=== PATIENT | female | born 1965 | race Caucasian/White ===

== ENCOUNTER 2021-08-26 12:10 | Observation (INO) | payer OTHER ==
--- OUTSIDE RECORDS SUMMARY | 2021-08-26 12:15 | XMS REPORT | Continuity of Care Document ---
:1965 Author Organization [facility] t Address [address] [place] [address] Care Team Providers Name Role Phone Jluis Sanchez Attending Clinician Unavailable Matt Attending Clinician Unavailable Sue Camara Attending Clinician Unavailable Negrita Orozco Attending Clinician Unavailable SHEKHAR Attending Clinician Unavailable Jluis Sanchez Admitting Clinician Unavailable Physician, Primary or Family Admitting Clinician Unavaildickson e Negrita Orozco Admitting Clinician Unavailable ORMARISSA Admitting Clinician Unavailable Payers Payer Name Policy Type Policy Number Effective Date Expiration Date Brian andres FORMERLY [facility] [id number] 2019 STAR PLAN 00:00:00 [place] [id number] 2020 HMO 00:00:00 HUMANA MEDICARE [id number] 2019 ADV 00:00:00 MEDICAID [id number] 2019 [place] 00:00:00 HUMANA MEDICARE NA Amy e ADVANTAGE O [facility] Problems Condition Condition Condition Status Onset Resolution Last Treating Co mments Source Name Details Category Date Date Treatment Clinician Date Asthma Ast[facility] Problem [facility]) Kidney Kidney Problem [facility]) Arthritis Arthritis Problem [facility] (LUF/LI V/SA) Weakness Problem Active [place] [facility] Transient Problem Active [place] ischemic [facility]le attack [facility] Paresthesi Problem Active [place] of left lle upper [facility] extremity l Hospita l Allergies, Adverse Reactions, Alerts Allergy Allergy Status Severity Reaction(s) Onset Inactive Treating Comm ents Source Name Type Date Date Clinician haloperi DA Active SV INCREASED [facility] dol PAIN 4-05 Clear 00:00: Sanchez [facility] mustard DA Active SV TONGUE [facility] SWELLING 3-16 Clear 00:00: Sanchez [facility] gabapent DA Active SV FORGETFULNES HC A in S/SLURRED 3-16 Clear SPEECH 00:00: Sanchez [facility] latex DA Active SV ANAPHYLAXIS [facility] 3-16 Clear 00:00: Sanchez [facility] tomato FA Active SV TONGUE [facility] SWELLING 3-16 Clear 00:00: Sanchez [facility] lavender FA Active SV ANAPHYLAXIS 0 [facility] (Lavandu 3-16 Clear la 00:00: [place] angustif 00 [facility] lakisha) [facility] lemon FA Active SV TONGUE 0 [facility] SWELLING 3-16 Clear 00:00: Sanchez 00 [facility] HAND DA Active SV RASH/WELTS 0 [facility] SANITIZE 3-16 Clear R 00:00: Sanchez 00 [facility] Sulfa DA Active SV DUANE 0 [facility] (Sulfona 3-14 Clear mide 00:00: [place] Antibiot 00 [facility]) [facility] latex DA Active SV DUANE 0 [facility] 3-14 Clear 00:00: Sanchez [facility] HAND DA Active SV DUANE 0 [facility] SANITIZE 3-14 Clear R 00:00: Sanchez [facility] NAPROXEN Allergy Active Low Rash [facility] PENICILL Allergy Active Low Rash [facility] LATEX Allergy Active Low Rash 2020-[address] [facility] [facility] Center SULFA Allergy Active Low Rash 2020-[address] [facility] (SULFONA 6-10 [facility] MIDE 00:00: Medical ANTIBIOT 00 Center ICS) No Known DA Active U 2020-0 [facility] Allergie 06-20 [place] 00:00: Health 00 are [facility] No Known DA Active U 2020-0 [facility] Allergie 06-20 [place] 00:00: [facility] 00 are [facility] [place] Allergy Active [place] Pepper to lle substanc Memoria e l Hospita l Lavender Allergy Active [place] Oil to lle substanc Memoria e [facility]ita [facility] Latex Allergy Active [place] to lle substanc [facility]oria e [facility]ita [facility] Tomato Allergy Active [place] to lle substanc [facility]oria e [facility]ospita [facility] Sulfa Allergy Active [place] Antibiot to lle ics substanc Memoria e l Hospita l Mustard Allergy Active [place] to lle substanc Memoria e l Hospita l Shrimp Allergy Active [place] to lle substanc Memoria e l Hospita l Sulfa(Linda DA Active Unknown Rash ([facility] Allergic [facility]ukes e Rxn) Memoria Antibiot l ics) (LUF/LI V/SA) naproxen DA Active Unknown Itching [facility] (LUF/LI V/SA) MISC-YOAV DA Active Unknown Blister [facility] (LUF/LI V/SA) Betadine DA Active Unknown Rash (Severe [facility] Allergic [facility] Rxn) Memoria l (LUF/LI V/SA) Lavender DA Active Unknown Rash (Severe [facility] Allergic [facility] Rxn) Memoria l (LUF/LI V/SA) Mustard DA Active Unknown Tongue [facility] (Severe Memoria Allergic l Rxn) (LUF/LI V/SA) Tomato DA Active Unknown Tongue [facility] (Severe Memoria Allergic l Rxn) (LUF/LI V/SA) Penicill DA Active Unknown Anaphylaxis [facility] ins (Severe [facility]ukes Allergic Memoria Rxn) l (LUF/LI V/SA) latex DA Active Unknown Rash (Severe [facility] Allergic [facility] Rxn) Memoria l (LUF/LI V/SA) Social History Social Habit Start Date Stop Date Quantity Comments Source Sex Ass[birth year] At [birth year] Female Amy Milian 00:00:00 00:00:00 Hospital Smoking Status Start Date Stop Date Source [facility] (LUF/ANGELO/SA) Medications Ordered Filled Start Stop Current Ordering Indication Dosage Frequency Signature Comments Components Source Medication Medication Date Date Medication? Clinician (SIG) Name Name TRAMADOL TRAMADOL Yes 50 EVERY SIX [place] HCL HCL 3-03 HOURS lle (TRAMADOL (TRAMADOL 15:59: NEEDED as Memoria HCL 50 MG HCL 50 MG 00 needed for l TAB) 50 MG TAB) 50 MG PAIN Hos tino TAB TAB l Cyclobenzap Cyclobenzap Yes 5 TWICE [place] rine HCl rine HCl 3-03 DAILY lle (CYCLOBENZA (CYCLOBENZA 12:07: NEEDED as Memoria REJI 5 MG REJI 5 MG 00 needed for l TAB) 5 MG TAB) 5 MG pain/mescl Hospita TAB TAB e spasm l albuterol albuterol Yes .63mg Q5.00H [facility] 0.21 MG/ML 0.21 MG/ML Jamilah es Inhalation Inhalation Mem oria Solution Solution l (LUF/LI V/SA) albuterol albuterol Yes [address] [facility] every 4 to [facility] 6 hours as Memoria needed. l (LUF/LI V/SA) albuterol albuterol Yes .63mg Q5.00H inhaled [facility] 0.21 MG/ML 0.21 MG/ML every 4 to [facility] Inhalation Inhalation 6 hours as Memoria Solution Solution needed. l (LUF/LI V/SA) ALBUTEROL ALBUTEROL Yes 2 EVERY FOUR [place] SULFATE SULFATE HOURS lle (PROAIR HFA (PROAIR HFA NEEDED as Memoria (ALBUTEROL) (ALBUTEROL) needed l INHALER) 1 INHALER) 1 Hos tino PUFF AER PUFF AER l Acetaminoph Acetaminoph Yes 650 THREE [place] en en TIMES lle (Tylenol) (Tylenol) DAILY M emoria 325 MG TAB 325 MG TAB NEEDED l Hospita l Albuterol Albuterol Yes 1.25 EVERY SIX [place] Sulfate Sulfate HOURS lle (ALBUTEROL (ALBUTEROL NEEDED as Memoria 1.25 MG 1.25 MG needed l NEB) 1.25 NEB) 1.25 Hospi ta MG/3 ML NEB MG/3 ML NEB l albuterol albuterol Yes 2 Q5.00H [facility] Memoria l (LUF/LI V/SA) Vital Signs Vital Name Observation Time Observation Value Comments Source Height 2020-07-14 09:52:00 165.1 CM Weight 2020-07-14 09:52:00 143.33 KG HEIGHT 2020-06-18 18:58:00 165.1 cm WEIGHT 2020-06-18 18:58:00 146.965 kg HEIGHT 2020-05-14 14:27:00 165.1 cm WEIGHT 2020-05-14 14:27:00 144.834 kg HEIGHT 2019-09-25 00:00:00 165.1 cm WEIGHT 2019-09-25 00:00:00 147.464 kg Pulse Rate 2020-07-15 11:16:00 77 /min [facility] (LUF/ANGELO/SA) Respiratory Rate 2020-07-15 11:16:00 16 /min [facility] (F/ANGELO/SA) BP Systolic 2020-07-15 11:16:00 111 mm[Hg] [facility] (F/ANGELO/SA) BP Diastolic 2020-07-15 11:16:00 64 mm[Hg] [facility] (F/ANGELO/SA) O2% BldC Oximetry 2020-07-15 11:14:00 98 % [facility] (F/ANGELO/SA) Body Temperature 2020-07-15 10:23:00 97.8 [degF] [facility] (F/ANGELO/SA) Height 2020-07-14 09:52:00 65 [in_i] [facility] (F/ANGELO/SA) Weight 2020-07-14 09:52:00 316 [lb_av] [facility] (F/ANGELO/SA) BMI (Body Mass 2020-07-14 09:52:00 52.6 kg/m2 [facility] Index) [facility] (LUF/ANGELO/SA) BP Systolic 2019-06-18 15:54:00 140 mm[Hg] [facility] BP Diastolic 2019-06-18 15:54:00 65 mm[Hg] [facility] Body Temperature 2019-06-18 15:54:00 96.5 [degF] [facility] Respiratory rate 2019-06-18 15:54:00 18 /min [facility] Heart Rate 2019-06-18 15:54:00 83 /min [facility] Oxygen saturation by 2019-06-18 15:54:00 96 /min [place] Pulse oximetry [facility] Height 2019-06-17 04:24:00 65 [in_i] [facility] Weight 2019-06-17 04:24:00 146.51 kg [facility] BMI (Body Mass 2019-06-17 04:24:00 53.7 kg/m2 [facility] ille Index) [facility] Procedures Procedure Date / Time Performing Clinician Source Performed DILATION AND CURRETAGE OF 2020-07-15 09:35:[address] [facility] UTERUS [facility] (LUF/ANGELO/SA) [id number] DILATION & CURETTAGE 2020-07-15 00:00:[address] [facility] DX&/THER NONO [facility] (LUF/ANGELO/SA) LIPID PANEL 2019-06-18 00:00:00 [facility] A1C 2019-06-18 00:00:00 [facility] CBCA W/PLT & AUTO 2019-06-17 00:00:00 [facility] COMPREHENSIVE METABOLIC 2019-06-17 00:00:00 [facility] PROTIME 2019-06-17 00:00:00 [facility] PTT 2019-06-17 00:00:00 [facility] CARDIAC MARKERS PANEL (ER) 2019-06-17 00:00:00 [facility] A1C 2019-06-17 00:00:00 [facility] LIPID PANEL 2019-06-17 00:00:00 [facility] THYROID STIMULATING 2019-06-17 00:00:00 [facility] CT BRAIN STROKE 2019-06-17 00:00:00 [facility] CHEST 1 VIEW (AP) 2019-06-17 00:00:00 [facility] ECHO W SPECTRAL & COLOR 2019-06-17 00:00:[address] [facility] [address] ANGIOGRAM HEAD 2019-06-17 00:00:[address] [facility] [address] ANGIOGRAM NECK 2019-06-17 00:00:00 [facility] section Critical access hospital (LUF/ANGELO/SA) Laparoscopic [facility] (LUF/ANGELO/SA) KIDNEY STENTS Critical access hospital (LUF/ANGELO/SA) PARTIAL CERVIX REMOVAL [facility] (LUF/ANGELO/SA) Appendectomy [facility] (LUF/ANGELO/SA) RIGHT ANKLE TENDON REPAIR Critical access hospital (LUF/ANEGLO/SA) Plan of Care Planned Activity Planned Date Details Comments Source Instructions Smoking Cessation for [facility] Older Adults: It's Not Hospi sarah Too Late! Instructions Heart-Healthy Diet [facility] Instructions Weight Loss: What Are [facility] Your Options? Hospital Instructions DI for Transient [facility] Ischemic Attack Hospital Instructions DI for High Blood [facility] Instructions Heart Healthy Physical [facility] Instructions DI for Weight Loss [facility] Encounters Start End Encounter Admission Attending Care Care Encounter Source Date/Time Date/Time Type Type Clinicians Facility Department ID 2021-06-28 Inpatient EL Daniel, HCACL DAYS [id number] [facility] 10:30:00 Denise [id number] [facility] 2021-06-02 Inpatient Daniel, HCACL DAYS [id number] [facility] 12:00:00 Denise [id number] [facility] 2021-05-31 Inpatient EL Daniel, HCACL DAYS [id number] [facility] 10:30:00 Denise [id number] [facility] 2021-05-[address] [facility] [id number] Common 14:10:11 Genetta 1108 [facility] 2021-05-12 Outpatient Matt, STLMLC STLMLC [id number] 1 Common 14:09:17 Genetta 1105 [facility] 2021-05-12 Outpatient Matt, STLMLC STLMLC [id number] 1 Common 13:59:56 Genetta 1013 [facility] 2021-05-12 Outpatient Matt, STLMLC STLMLC [id number] 1 Common 13:59:46 Genetta 1012 [facility] 2021-05-12 Outpatient Matt, STLMLC STLMLC [id number] 1 Common 13:37:07 Genetta 0811 [facility] 2021-05-12 Outpatient Matt, STLMLC STLMLC [id number] 1 Common 13:36:50 Genetta 0810 [facility] 2021-05-12 Outpatient Matt, STLMLC STLMLC [id number] 1 Common 13:01:46 Genetta 0511 [facility] 2021-05-12 Outpatient Matt, STLMLC STLMLC [id number] 1 Common 12:58:31 [place] 0503 [facility] 2021-05-12 Outpatient Matt, STLMLC STLMLC [id number] 1 Common 12:49:57 Genetta 0409 [facility] 2021-05-12 Outpatient Matt, STLMLC STLMLC [id number] 1 Common 12:48:16 [place] 0406 [facility] 2021-05-12 Outpatient Matt, STLMLC STLMLC [id number] 1 Common 12:33:57 Genetta 0226 [facility] 2019-06-21 Inpatient HCANW ABRAM [id number] [facility] 22:09:[address] [place] [address] 2021-07-20 2021-07-21 Emergency EM Hoa, HCACL ABRAM [id number] [facility] 19:39:00 01:34:00 Christracheller [id number] [facility] 2021-07-20 2021-07-21 Emergency EM Hoa, HCACL HCACL [id number] [facility] 19:39:00 01:34:00 Christopher 39 Cl [facility] 2021-06-30 2021-07-01 Inpatient ANGELINA Enriquez MEDI.01 [id number] [facility] 05:38:00 21:33:00 Xiang 13 [facility] 2021-06-30 2021-07-01 Inpatient ANGELINA Enriquez MEDI.01 [id number] [facility] 05:38:00 21:33:00 Xiang [id number] [facility] 2021-02-25 2021-02-25 ambulatory STLMLC STLMLC [id number] Common 00:00:00 00:00:00 [facility] 2021-02-22 2021-02-22 ambulatory STLMLC STLMLC [id number] Common 00:00:00 00:00:00 [facility] 2020-08-26 2020-08-26 Outpatient STLMLC STLMLC [id number] Common 00:00:00 00:00:00 [facility] 2020-08-17 2020-08-17 Outpatient STLMLC STLMLC [id number] Common 00:00:00 00:00:00 [facility] 2020-07-22 2020-07-22 Outpatient STLMLC STLMLC [id number] Common 00:00:00 00:00:00 [facility] 2020-07-15 2020-07-15 Inpatient [facility] [id number] 10:34:00 23:59:00 [facility] [address] (LUF/LI A[address], V/SA) KIM BARRIGA [id number] 2020-07-15 2020-07-15 POSTMENOPA O ORAEE, [facility] [id number] 07:22:00 11:21:00 USAL JUAN PRABHAKAR L ukes BLEEDING N, [address] [place], (LUF/[place] [address] 2020-07-15 2020-07-15 Outpatient STLMLC STLMLC [id number] Common 00:00:00 00:00:00 [facility] 2020-07-15 2020-07-15 Inpatient [facility] [id number] [facility] 00:[facility]00 00:00:00 KARELY RAYSTON [id number] [facility], [id number] [id number] l [place], (LUF/[place] [address] 2020-07-15 2020-07-15 Inpatient [facility] [id number] 00:00:00 00:00:00 CHANDLER [id number] Jamilah [facility], [id number] [id number] (LUF/LI AVE, V/SA) [place]IM [place] [id number] 2020-07-15 2020-07-15 Inpatient [facility] [id number] 00:00:00 00:00[facility]00 [facility] RAYPRABHAK[facility] [id number] [facility] N, [id number] [place], (LUF/[place] [address] 2020-07-09 2020-07-09 Outpatient STLMLC STLMLC [id number] Common 00:00:00 00:00:00 [facility] 2020-07-06 2020-07-06 Outpatient STLMLC STLMLC [id number] Common 00:00:00 00:00:00 [facility] 2020-07-03 2020-07-03 Outpatient STLMLC STLMLC [id number] Common 00:00:00 00:00:00 [facility] 2020-07-02 2020-07-02 Outpatient STLMLC STLMLC [id number] Common 00:00:00 00:00:00 [facility] 2020-06-18 2020-06-[address] [facility] Emergency [id number] [facility] 18:44:00 18:44:00 2020-06-12 2020-06-12 Outpatient STLMLC STLMLC [id number] Common 00:00:00 00:00:00 [facility] 2020-05-14 2020-05-[address] [facility] Emergency [id number] [facility] 14:24:00 14:24:00 2019-09-25 2019-09-[address] [facility] Emergency [id number] [facility] 11:44:00 11:44:00 2019-06-29 2019-06-29 Emergency [facility] [id number] [facility] 11:35:00 11:35:00 [id number] 2019-06-17 2019-06-18 Discharged [facility] H000 [id number] [place] 02:02:00 19:00:[address] Results Test Description Test Time Test Comments Results Result Comments Source SED RATE WESTERGREN 2021-07-20 22:59:00 Test Item Value Reference Range Interpretation Comme nts SED RATE [facility] (test code = SEDW) 40 mm/hr 0-20 H C REACTIVE [id number] 22:36:00 Test Item Value Reference Range Interpretation Comments C REACTIVE PROTEIN (test code = 30.0 mg/L <10.0 H CRP) BASIC METABOLIC [id number] 21:40:00 Test Item Value Reference Range Interpretation Comments SODIUM (test code = NA) 139 mEq/L 134-147 N POTASSIUM (test code = 3.9 mEq/L 3.4-5.0 N K) CHLORIDE (test code = 104 mEq/L 100-108 N CL) CARBON DIOXIDE (test 25 mEq/l 21-33 N code = CO2) ANION GAP (test code = 14 0-20 N GAP) GLUCOSE (test code = 105 mg/dL 70-110 N GLU) BLOOD UREA NITROGEN 12 mg/dL 7-18 N (test code = BUN) GLOMERULAR FILTRATION 86.9 90-95 L Units of measure = RATE (test code = GFR) ml/mi n/1.73 m2 CREATININE (test code = 0.7 mg/dL 0.6-1.3 N CREAT) CALCIUM (test code = 9.5 mg/dL 8.0-10.5 N CA) HEPATIC FUNCTION [id number] 21:40:00 Test Item Value Reference Range Interpretation Comments TOTAL PROTEIN (test code = PROT) 7.5 g/dL 6.4-8.2 N ALBUMIN (test code = ALB) 4.40 g/dL 3.4-5.0 N BILIRUBIN TOTAL (test code = 0.80 mg/dL 0.0-1.0 N BILT) BILIRUBIN DIRECT (test code = 0.20 MG/DL 0.0-0.30 N BILD) SGOT/AST (test code = AST) 21 IUnit/L 15-37 N SGPT/ALT (test code = ALT) 11 IUnit/L 30-65 L ALKALINE PHOSPHATASE TOTAL (test 109 IUnit/L 20-125 N code = ALKP) BILIRUBIN INDIRECT (test code = 0.60 MG/DL BILIND) TROP-I HIGH [id number] 21:40:00 Test Item Value Reference Range Interpretation Comments TROP-I HIGH < 3 ng/L 0-34 N CAUTION: Units of the SENSITIVITY (test current te st methodology code = TROPIHS) (ng/L) diffe rfrom the prior test meth odology (ng/mL) by a fa ctor of 1000. 99t h Percentile Uppe r Reference Limit (URL): Fe males: 34 ng/LMales: 54 ng/L In order to distin guish acute elevations of h igh sensitivitytrop onin from other clinical conditions, the FourthUnive rsal Definition of M yocardial Infarction stressesclinica l assessment and the demonstration o f a rise and/orfall in s erial troponin result s above the URL. These resu lts were obtained using Siemens Atellica IM TnI Hreagent. Results from di fferent methodologies s hould not becompared to o ne another as quantitative results and URLs mayvar y by method. LACTIC [id number] 21:39:00 Test Item Value Reference Range Interpretation Comments LACTIC ACID (test code = LACT) 1.2 mmol/L 0.4-1.9 N CBC W/AUTO [id number] 21:24:00 Test Item Value Reference Range Interpretation Comments WHITE BLOOD CELL (test code = 8.3 x10 3/uL 4.5-11.0 N WBC) RED BLOOD CELL (test code = 4.86 x10 6/uL 3.54-5.02 N RBC) HEMOGLOBIN (test code = HGB) 13.8 g/dL 11.0-15.0 N HEMATOCRIT (test code = HCT) 42.5 % 33.0-45.0 N MEAN CELL VOLUME (test code = 87.4 fL 81.0-99.0 N MCV) MEAN CELL HGB (test code = MCH) 28.4 pg 27.0-33.0 N MEAN CELL HGB CONCETRATION 32.5 g/dL 33.0-37.0 L (test code = MCHC) RED CELL DISTRIBUTION WIDTH CV 13.8 % 11.5-14.5 N (test code = RDW) RED CELL DISTRIBUTION WIDTH SD 43.8 fL 37.0-54.0 N (test code = RDW-SD) PLATELET COUNT (test code = 267 x10 3/uL 150-400 N PLT) MEAN PLATELET VOLUME (test code 9.8 fL 7.0-9.0 H = MPV) NEUTROPHIL % (test code = NT%) 67.6 % 56.0-77.0 N IMMATURE GRANULOCYTE % (test 0.6 % 0.0-2.0 N code = IG%) LYMPHOCYTE % (test code = LY%) 20.9 % 14.0-32.0 N MONOCYTE % (test code = MO%) 7.6 % 4.8-9.0 N EOSINOPHIL % (test code = EO%) 2.3 % 0.3-3.7 N BASOPHIL % (test code = BA%) 1.0 % 0.0-2.0 N NUCLEATED RBC % (test code = 0.0 % 0-0 N NRBC%) NEUTROPHIL # (test code = NT#) 5.59 x10 3/uL 2.0-7.6 N IMMATURE GRANULOCYTE # (test 0.05 x10 3/uL 0.00-0.03 H code = IG#) LYMPHOCYTE # (test code = LY#) 1.73 x10 3/uL 1.0-3.8 N MONOCYTE # (test code = MO#) 0.63 x10 3/uL 0.1-0.8 N EOSINOPHIL # (test code = EO#) 0.19 x10 3/uL 0.0-0.2 N BASOPHIL # (test code = BA#) 0.08 x10 3/uL 0.0-0.2 N NUCLEATED RBC # (test code = 0.00 x10 3/uL 0.0-0.1 N NRBC#) MANUAL DIFF REQUIRED (test code NO = MDIFF) UA RFLX MICR CULT IF [id number] 20:56:00 Test Item Value Reference Range Interpretation Comments UA COLOR (test code = COLU) YELLOW YEL/STRAW UA APPEARANCE (test code = CLOUDY CLEAR A APPU) UA GLUCOSE DIPSTICK (test code NEGATIVE NEGATIVE = DGLUU) UA BILIRUBIN DIPSTICK (test NEGATIVE NEGATIVE code = BILU) UA KETONE DIPSTICK (test code = NEGATIVE NEGATIVE KETU) UA SPECIFIC GRAVITY (test code 1.026 1.005-1.030 N = SGU) UA BLOOD DIPSTICK (test code = 1+ NEGATIVE A BALJINDER) UA PH DIPSTICK (test code = 5.0 5.0-7.0 N ESTHER) UA PROTEIN DIPSTICK (test code NEGATIVE NEGATIVE = PROU) UA UROBILINIOGEN DIPSTICK (test 0.2 mg/dL 0.2-1.0 code = URO) UA NITRITE DIPSTICK (test code NEGATIVE NEGATIVE = SULEIMAN) UA LEUKOCYTE ESTERASE DIPSTICK NEGATIVE NEGATIVE (test code = LEUU) UA WBC (test code = WBCU) 0-3 WBC/HPF 0-3 UA RBC (test code = RBCU) 11-20 RBC/HPF 0-3 UA WBC NO REFLEX (test code = 0-3 WBC/HPF 0-3 WBCUCL) UA BACTERIA (test code = BACU) 2+ /HPF NONE SEEN A UA SQUAMOUS CELLS (test code = 11-25 /HPF NONE SEEN A SQU) UA CALCIUM OXALATE CRYSTALS 1+ /HPF NONE SEEN A (test code = CAOXU) UA MUCUS (test code = MUCU) 3+ /LPF NONE SEEN A Indication for culture: RiskForSepsis-no oth srcSpecimen Description: CLEAN CATCH- XR KNEE 1 OR 2 V [id number] 00:00:00 [facility] 1965 Sex: F FAX: Renato Englishvickie MEADE [phone] [place]: St: REG Name: ROSA HOLMSyeda [facility] [place] : 1965 Age/S: 56/F [address] [place] [address] Unit #: [id number] Loc: [place] [address] Phys: Chana English Acct: [id number] Dis Date: S tatus: REG ER PHONE #: [phone] Exam Date: 07/20/20212014 FAX #: [phone] Reason: L KNEE PAIN, SWELLING, REDNESS EXAMS: CPT CODE: [id number] XR KNEE 1 OR 2 T [id number] PROCEDURE INFORMATION: Exam: XR Left Knee Exam date and time: 07/20/2021 8:00 PM Age: 56 years old Clinical indication: Other: L knee pain, swelling, redness TECHNIQUE: Imaging protocol: XR Left knee. Views: 1 or 2 views. COMPARISON: CR XR KNEE 1 OR 2 V LT 06/30/2021 2:14 PM FINDINGS: Bones/joints: There is new irregularity and osseous resorption of the patellar articular margin and superior pole that could be the result of osteomyelitis. There is intact orthopedic total left knee arthroplasty hardware. There is no osseous fracture or dislocation.Soft tissues: There is soft tissue swelling. There is no subcutaneous emphysema or unintentional retained radiodense foreign body in the soft tissues. Other findings: There is a small suprapatellar joint effusion. IMPRESSION: 1. There is new irregularity and osseous resorption of the patellar articular margin and superior pole that could be the result of osteomyelitis. 2. There is a small suprapatellar joint effusion. 3. There is intact orthopedic total left knee arthroplasty hardware. There is no osseous fracture or dislocation. 4. There is soft tissue swelling. There is no subcutaneous emphysemaor unintentional retained radiodense foreign body in the soft tissues. at 2031 Reported and signed by: Car Ramsey D.O. CC: Naomi English Technologist: RT Namrata(Yimi) Trnscrd Date/Time/By: 07/20/2021 (2031) : By: [email or web address] Orig Print D/T: S: 07/20/2021 (2032) PAGE 1 Signed Report- XR CHEST 1 V 2021-07-20 00:00:00 [facility] : 1965 Sex: F FAX: Naomi English [phone] [place]: SAMEER St: REG Name: ROSA HOLM [facility] : 1965 Age/S: 56/F [address] [place] [address] Unit #: [id number] Loc: [place] [address] Phys: Renato EnglishFahad MEADE Acct: [id number] Dis Date: S tatus: REG ER PHONE #: [phone] Exam Date: 07/20/20212014 FAX #: [phone] Reason: SEPSIS EXAMS: CPT CODE: [id number] XR CHEST 1 V 01707 PROCEDURE INFORMATION: Exam: XR Chest Exam date and time: 07/20/2021 8:00 PM Age: 56 years old Clinical indication: Other: Sepsis TECHNIQUE: Imaging protocol: XR of the chest. Views: 1 view. COMPARISON: DX XR CHEST 2 V 06/28/2021 11:21 AM FINDINGS: Lungs: Mild decreased lung volumes. No consolidation. Pleural spaces: Unremarkable. No pleural effusion. No pneumothorax. Heart/Mediastinum: Heart size is within normal limits. Vasculature is unremarkable. Bones/joints: Unremarkable. IMPRESSION: No acute cardiopulmonary findings. at 2033 Reported and signed by: Blake Patel M.D. CC: Naomi English Technologist: RT Namrata(Yimi) Trnscrd Date/Time/By: 07/20/2021 (2033) : By: Jenaro Orig Print D/T: S: 07/20/2021 (2033) PAGE 1 Signed ReportBASIC METABOLIC [id number] 07:45:00 Test Item Value Reference Range Interpretation Comments SODIUM (test code = NA) 138 mEq/L 134-147 N POTASSIUM (test code = 4.1 mEq/L 3.4-5.0 N K) CHLORIDE (test code = 104 mEq/L 100-108 CL) CARBON DIOXIDE (test 23 mEq/l 21-33 N code = CO2) ANION GAP (test code = 15 0-20 N GAP) GLUCOSE (test code = 141 mg/dL 70-110 H GLU) BLOOD UREA NITROGEN 7 mg/dL 7-18 N (test code = BUN) GLOMERULAR FILTRATION 86.9 90-95 L Units of measure = RATE (test code = GFR) ml/mi n/1.73 m2 CREATININE (test code = 0.7 mg/dL 0.6-1.3 N CREAT) CALCIUM (test code = 9.4 mg/dL 8.0-10.5 N CA) CBC W/AUTO [id number] 07:29:00 Test Item Value Reference Range Interpretation Comments WHITE BLOOD CELL (test code = 12.6 x10 3/uL 4.5-11.0 H WBC) RED BLOOD CELL (test code = 4.32 x10 6/uL 3.54-5.02 N RBC) HEMOGLOBIN (test code = HGB) 12.4 g/dL 11.0-15.0 N HEMATOCRIT (test code = HCT) 38.1 % 33.0-45.0 N MEAN CELL VOLUME (test code = 88.2 fL 81.0-99.0 N MCV) MEAN CELL HGB (test code = 28.7 pg 27.0-33.0 N MCH) MEAN CELL HGB CONCETRATION 32.5 g/dL 33.0-37.0 L (test code = MCHC) RED CELL DISTRIBUTION WIDTH CV 13.5 % 11.5-14.5 N (test code = RDW) RED CELL DISTRIBUTION WIDTH SD 44.1 fL 37.0-54.0 N (test code = RDW-SD) PLATELET COUNT (test code = 260 x10 3/uL 150-400 N PLT) MEAN PLATELET VOLUME (test 10.8 fL 7.0-9.0 H code = MPV) NEUTROPHIL % (test code = NT%) 88.2 % 56.0-77.0 H IMMATURE GRANULOCYTE % (test 0.5 % 0.0-2.0 N code = IG%) LYMPHOCYTE % (test code = LY%) 6.1 % 14.0-32.0 L MONOCYTE % (test code = MO%) 5.0 % 4.8-9.0 N EOSINOPHIL % (test code = EO%) 0.0 % 0.3-3.7 L BASOPHIL % (test code = BA%) 0.2 % 0.0-2.0 N NUCLEATED RBC % (test code =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 and signed by: Gen Owusu MD Name: ROSA HOLM [facility] Phys: Jluis Clark PA-C [address] [facility] : 1965 Age: 54 Sex: F [place] [id number] Loc: N.ERS Exam Date: 06/21/2019 Status: REG ER PH:FAX: PAGE 1 Signed Report (CONTINUED) Patient Name: ROSA HOLM Unit No: [id number] EXAMS: CPT: [id number] CT HEAD/BRAIN W/O CONT 78942 <Continued> CC: Jluis Carrillo; Osmin Klein MD Technologist: Denise T.; WES G. CTDI: 34.61 DL P: 591.22 Trscr Dt/Tm: 06/21/2019 (2254) by:Jose [email or web address] Orig Print D/T: S: 06/21/2019 (2257) BATCH NO: N/A Name: RSOA HOLM [facility] Phys: Jluis Clark PA-C [address] : 1965 Age: 54 Sex: [place] [id number] Loc: N.ERS Exam Date: 06/21/2019 Status: REG ER PH: FAX: PAGE 2 Signed ReportN/[id number] 04:41:00 Test Item Value Reference Range Interpretation Comments N/A (test code = N/A) CALCULATE BELOW CORONARY HEART DISEASE (CHD) RISK FACTORS: +1, Age(y): Men, >45 Women, >55 or Premature Menopause Without Estrogen Therapy +1, Family History of Premature CHD +1, CurrentCigarette Smoking +1, Hypertension +1, Low HDL-C: <40 mg/dL -1, High HDL-C: 60 mg/dL or More Total RFs CHD Risk Equivalents (REq): Diabetes Other Forms of Atherosclerotic Disease Lipid testing of hospitalized patients may be inaccurate dueto fluctuations from the patients normal metabolic state. Accurate triglyceride and LDL testing requi res a fastingspecimen. If non-fasting cholesterol > or = 200 mg/dL orHDL is < 40 mg/dL, fasting lipid panel is recommended.Repeat testing recommended prior to treatment. Desirable LevelsMethodist Mckinney HospitalCholesterol [id number] 04:41:00 Test Item Value Reference Range Interpretation Comments Cholesterol Level (test code = 2093-3) 168 0-200 [facility] HospitalTriglycerides [id number] 04:41:00 Test Item Value Reference Range Interpretation Comments Triglycerides Level (test code = 128 10-150 2571-8) Normal triglycerides: <150 mg/dLBorderline-high triglycerides: 150-199 mg/dLHigh triglycerides: 200-499 mg/dLVery high triglycerides: > or = 500 mg/dLHuBaylor Scott & White Medical Center – Marble FallsHDL [id number] 04:41:00 Test Item Value Reference Range Interpretation Comments HDL Cholesterol (test code = 2085-9) 30.3 40-130 [facility] HospitalN/[id number] 04:41:00 Test Item Value Reference Range Interpretation Comments N/A (test code = 37234-0) 5.5 0.0-5.0 [facility] HospitalLDL Cholesterol (Measured)2019-06-18 04:41:00 Test Item Value Reference Range Interpretation Comments LDL Cholesterol (Measured) (test code = 118 0-130 88582-0) *LDL Cholesterol <130 mg/dL, No CHD or CHD Risk Equivalent <100 mg/dL, With CHD or CHD Risk Equivalent LDL Cholesterol Therapeutic Goal:100 mg/dL or Less if CHD or CHD Risk Equivalent Present<130 mg/dL if No CHD or REq; 2 or more Risk Factors<160 mg/dL if No CHD or REq; 0-1 Risk Factors Reference: ATP III, JOAQUIN, 285:19, 7936-99, 2001.[facility] HospitalHemoglobin A1c [id number] 04:41:00 Test Item Value Reference Range Interpretation Comments Hemoglobin A1c Percent (test code = 5.30 4.0-5.6 4548-4) Prediabetes 5.7% to 6.4%Diabetes 6.5% or higher Elevated levels of HbA1c suggest the need for moreaggressive treatmentof glycemia. The [place] Diabetes[employer] recommends that a primary goal of therapy shouldbe a HbA1c of <7% and that physicians should reevaluate thetreatment regimen in patients with HbA1c values consistently>8%. [facility]/[id number] 04:41:00 Test Item Value Reference Range Interpretation Comments N/A (test code = 90531-4) 105 A1C Result% Estimated Avg.Glucose (EAG) 6.0% 126 mg/dL 6.5% 140 mg/dL 7.0% 154 mg/dL 7.5% 169 mg/dL 8.0% 183 mg/dL 8.5% 197 mg/dL 9.0% 212 mg/dL 9.5% 226 mg/dL 10.0% 240 mg/dL Reference: italo Parada, Diabetes Care 31: 1437, 2008.[facility] HospitalThyroid Stimulating Hormone (TSH)2019-06-17 11:14:00 Test Item Value Reference Range Interpretation Comments Thyroid Stimulating Hormone (TSH) (test 2.04 0.34-5.6 code = 3015-5) [facility] HospitalWhite Blood [id number] 02:25:00 Test Item Value Reference Range Interpretation Comments White Blood Count (test code = 6690-2) 8.7 4.1-12.9 [facility] HospitalRed Blood [id number] 02:25:00 Test Item Value Reference Range Interpretation Comments Red Blood Count (test code = 789-8) 4.84 3.64-5.20 [facility] HospitalHemoglobin2020-03-02 02:25:00 Test Item Value Reference Range Interpretation Comments Hemoglobin (test code = 718-7) 14.0 10.6-15.6 [facility] HospitalHematocrit2020-03-02 02:25:00 Test Item Value Reference Range Interpretation Comments Hematocrit (test code = 57728-8) 42.5 32.0-45.9 [facility] Corpuscular [id number] 02:25:00 Test Item Value Reference Range Interpretation Comments Mean Corpuscular Volume (test code = 87.6 74.6-98.2 49080-0) [facility] Corpuscular [id number] 02:25:00 Test Item Value Reference Range Interpretation Comments Mean Corpuscular Hemoglobin (test code 29.0 24.3-33.8 = 45300-6) [facility]uscular Hgb Concent [id number] 02:25:00 Test Item Value Reference Range Interpretation Comments Mean Corpuscular Hgb Concent Diff (test 33.1 32.0-36.0 code = 43773-5) [facility] HospitalRed Cell Distribution [id number] 02:25:00 Test Item Value Reference Range Interpretation Comments Red Cell Distribution Width (test code 14.2 11.4-16.3 = 02852-1) [facility] HospitalPlatelet [id number] 02:25:00 Test Item Value Reference Range Interpretation Comments Platelet Count (test code = 777-3) 224 168441 [facility] Platelet [id number] 02:25:00 Test Item Value Reference Range Interpretation Comments Mean Platelet Volume (test code = 8.4 6.8-10.2 75109-3) [facility] HospitalGranulocytes (%)2019-06-17 02:25:00 Test Item Value Reference Range Interpretation Comments Granulocytes (%) (test code = 63296-1) 68.5 39.8-78.1 [facility] HospitalLymphocytes %2019-06-17 02:25:00 Test Item Value Reference Range Interpretation Comments Lymphocytes % (test code = 736-9) 20.0 14.1-47.6 [facility] HospitalMonocytes %2019-06-17 02:25:00 Test Item Value Reference Range Interpretation Comments Monocytes % (test code = 5905-5) 8.8 3.8-11.6 [facility] HospitalEosinophils %2019-06-17 02:25:00 Test Item Value Reference Range Interpretation Comments Eosinophils % (test code = 713-8) 1.8 0.6-7.3 [facility] HospitalBasophils %2019-06-17 02:25:00 Test Item Value Reference Range Interpretation Comments Basophils % (test code = 11538-7) 0.9 0.0-2.0 [facility] HospitalGranulocytes #2019-06-17 02:25:00 Test Item Value Reference Range Interpretation Comments Granulocytes # (test code = 84038-1) 5.9 1.6-10.1 [facility] HospitalLymphocytes #2019-06-17 02:25:00 Test Item Value Reference Range Interpretation Comments Lymphocytes # (test code = 95367-3) 1.7 0.6-6.1 [facility] HospitalMonocytes #2019-06-17 02:25:00 Test Item Value Reference Range Interpretation Comments Monocytes # (test code = 742-7) 0.8 0.2-1.5 [facility] HospitalEosinophils #2019-06-17 02:25:00 Test Item Value Reference Range Interpretation Comments Eosinophils # (test code = 711-2) 0.2 0.0-0.9 [facility] HospitalBasophils #2019-06-17 02:25:00 Test Item Value Reference Range Interpretation Comments Basophils # (test code = 99274-2) 0.1 0.0-0.2 [facility] HospitalManual [id number] 02:25:00 Test Item Value Reference Range Interpretation Comments Manual Differential (test code = Manual NO Differential) [facility] HospitalProthrombin [id number] 02:25:00 Test Item Value Reference Range Interpretation Comments Prothrombin Time (test code = 5964-2) 12.5 10.0-12.9 [facility] HospitalINR International Normalized [id number] 02:25:00 Test Item Value Reference Range Interpretation Comments INR International Normalized Ratio 1.1 0.91-1.15 (test code = 6301-6) THE INR IS TO BE USED ONLY FOR MONITORING ORAL ANTICOAGULANTTHERAPY. INDICATION INR VALUE 1. Prophylaxis of venous thrombosis 2.0-3.0 (high-risk surgery) Treatment of venous thrombosis Treatment of PE Prevention of systemic embolism Tissue heart valves AMI (to prevent systemic embolism) Valvular heart disease Atrial fibrillation Bileaflet mechanical valve in aortic position 2. Mechanical prosthetic heart valves (high risk) 2.5-3.5 Thrombosis and Antiphospholipid syndrome Prevention of recurrent [place] Sixth ACCP Consensus Conference on Antithrombotic Therapy,Chest 2001; 119:Supplement 8-21.[facility]inney HospitalActivated Partial Thromboplast [id number] 02:25:00 Test Item Value Reference Range Interpretation Comments Activated Partial Thromboplast Time 31.1 25.1-36.5 (test code = 3173-2) [facility] Renaissanceodium [id number] 02:25:00 Test Item Value Reference Range Interpretation Comments Sodium Level (test code = 2951-2) 137 135-144 [facility] HospitalPotassium [id number] 02:25:00 Test Item Value Reference Range Interpretation Comments Potassium Level (test code = 2823-3) 3.7 3.5-5.1 [facility] HospitalChloride [id number] 02:25:00 Test Item Value Reference Range Interpretation Comments Chloride Level (test code = 2075-0) 103 101-111 [facility] HospitalCarbon Dioxide [id number] 02:25:00 Test Item Value Reference Range Interpretation Comments Carbon Dioxide Level (test code = 26 22-32 8-9) [facility] HospitalAnion [id number] 02:25:00 Test Item Value Reference Range Interpretation Comments Anion Gap (test code = 87124-0) 11.7 10-20 [facility] HospitalGlucose [id number] 02:25:00 Test Item Value Reference Range Interpretation Comments Glucose Level (test code = 2345-7) 118 65-99 Prediabetes 100 to 125 mg/dlDiabetes 126 mg/dl or higher Prediabetes refers to individuals with plasma glucose levelsintermediate between those considered normal and thoseconsidered diabetic and is also referred to as impairedglucose tolerance (IGT) or impaired fasting glucose (IFG). [facility] HospitalBlood Urea [id number] 02:25:00 Test Item Value Reference Range Interpretation Comments Blood Urea Nitrogen (test code = 13 8-26 3094-0) [facility] HospitalCreatinine2020-03-02 02:25:00 Test Item Value Reference Range Interpretation Comments Creatinine (test code = 2160-0) 0.8 0.44-1.00 [facility] HospitalEGFR [id number] 02:25:00 Test Item Value Reference Range Interpretation Comments EGFR Note (test code = 55462-9) 99.2 63.8-143.2 eGFR (Estimated Glomerular Filtration Rate) eGFR calculation value obtained using the Martin Memorial Health SystemsQuadratic (Q) equation. The reportable reference range isrecommended to be greater than 60 ml/min/1.73m. This is anestimation of the patient's GFR and clinical correlation isrecommended. This eGFR calculation does not account for race. This resultmay differ from other equations available. [facility] HospitalCalcium [id number] 02:25:00 Test Item Value Reference Range Interpretation Comments Calcium Level (test code = 53736-8) 9.4 8.9-10.3 [facility] HospitalAlbumin2020-03-02 02:25:00 Test Item Value Reference Range Interpretation Comments Albumin (test code = 1751-7) 4.3 3.5-5.0 [facility] [id number] 02:25:00 Test Item Value Reference Range Interpretation Comments Total Bilirubin (test code = 1975-2) 0.5 0.2-1.2 [facility] HospitalAlkaline Aoljksbdxpj9594-09-26 02:25:00 Test Item Value Reference Range Interpretation Comments Alkaline Phosphatase (test code = 71 32-91 6768-6) [facility] Centertal Ycaxlkj3852-07-60 02:25:00 Test Item Value Reference Range Interpretation Comments Total Protein (test code = 2885-2) 7.5 6.5-8.1 [facility] HospitalAlanine Aminotransferase (ALT/SGPT)2019-06-17 02:25:00 Test Item Value Reference Range Interpretation Comments Alanine Aminotransferase (ALT/SGPT) 20 7-55 (test code = 1742-6) [facility] HospitalAspartate Amino Transf (AST/SGOT)2019-06-17 02:25:00 Test Item Value Reference Range Interpretation Comments Aspartate Amino Transf (AST/SGOT) (test 25 15-41 code = 1920-8) [facility] HospitalGlobulin2020-03-02 02:25:00 Test Item Value Reference Range Interpretation Comments Globulin (test code = 88035-3) 3.2 2.3-3.5 [facility] HospitalAlbumin/Globulin [id number] 02:25:00 Test Item Value Reference Range Interpretation Comments Albumin/Globulin Ratio (test code = 1.3 1.2-2.2 1759-0) [facility] HospitalCreatine [id number] 02:25:00 Test Item Value Reference Range Interpretation Comments Creatine Kinase (test code = 2157-6) 59 38-234 [facility] HospitalCreatine Kinase [id number] 02:25:00 Test Item Value Reference Range Interpretation Comments Creatine Kinase MB (test code = 1.06 0.6-6.3 51433-2) [facility] HospitalTroponin [id number] 02:25:00 Test Item Value Reference Range Interpretation Comments Troponin I (test code = 45871-3) < 0.01 0.00-0.03 Troponin I-Interpretation Reference : <0.03 ng/mL NEGATIVE 0.04 - 0.49 ng/mL EQUIVOCAL =OR > 0.5 ng/mL CONSISTENT WITH ACUTE MYOCARDIAL INJURY 98% of confirmed AMI patients will have at least one valuein a set or serial specimens >0.50 ng/ml. 99% of normals are between 0.0 - 0.10 ng/ml. Serial samples on a patient that are all <0.10 ng/mleffectively rules out AMI. Persistentlyincreased troponin I values that are above theupper limit of normal but below the threshold for AMIindicate mycardial injury but not necessarily an ischemicmechanism of injury. Troponin Important Points 1. Troponin is specific for myocardial injury but not forAMI. Elevated troponin levels above the upper limit ofnormal but below the AMI cutoff may be present in cardiacinjury other then AMI and represent some degree of risk. 2. Elevated troponin levels inconsistent with patienthistory or clinical condition should be considered a sign toinvestigate for other cardiac conditions.3. Serial sampling is critical for accurate diagnosis.[facility] HospitalMyoglobin2020-03-02 02:25:00 Test Item Value Reference Range Interpretation Comments Myoglobin (test code = 2639-3) 23 14.3-65.8 [facility]
[2021-08-26] MEDS ORDERED: MORPHINE 4 MG/ML SYR ONE (12:44)
[2021-08-26] MEDS ORDERED: ONDANSETRON 4 MG/2 ML VIAL ONE ×3 (12:44→18:14)
[2021-08-26] MEDS ORDERED: NA CHLORIDE 0.9% 500 ML ONE (12:44)
[2021-08-26 12:50] LABS: Urine Blood 2+ (Negative); Urine Glucose Negative (Negative); Urine Protein Negative (Negative)
[2021-08-26 12:51] LABS: Absolute Lymphocytes (CBC) 1.1 K/uL (0.7-4.9); Hematocrit 36.9 % (36.0-45.0); Lymphocytes % 20.8 % (15.3-44.8); MPV 7.9 fL (7.6-11.3); RBC Red Blood Cell Count 4.31 M/uL (3.86-4.86)
[2021-08-26 13:12] LABS: Albumin 3.2 g/dL (3.4-5.0); Bilirubin Total 0.4 mg/dL (0.2-1.0); Potassium 3.6 mmol/L (3.5-5.1); Protein, Total 6.5 g/dL (6.4-8.2)
[2021-08-26 13:38] LABS: Urine Bacteria 20-50 /HPF (<20)
--- NOTE | 2021-08-26 14:32 | RAD REPORT ---
EXAM DESCRIPTION: CT - Stone Protocol - 08/26/2021 2:09 pm CLINICAL HISTORY: Abdominal pain. Flank pain COMPARISON: None. TECHNIQUE: Computed axial tomography of the abdomen pelvis was obtained without oral or IV contrast. Lack of IV and oral contrast limits evaluation of solid organs, bowel, and vessels. Coronal reformat sal images were obtained and reviewed. All CT scans are performed using dose optimization technique as appropriate and may include automated exposure control or mA/KV adjustment according to patient size. FINDINGS: Mioderate left hydronephrosis. 8 millimeter calculus proximal left ureter. A right renal c alculus is not seen. A right ureteral calculus is not visualized. No bladder calculus. The liver, spleen, pancreas and adrenals appear grossly normal There is no evidence of diverticulitis. A complex umbilical/periumbilical hernia. The neck measures 4 centimeters. Herniated sac measures 6.2 centimeters IMPRESSION: 8 millimeter calculus proximal left ureter resulting in moderate left hydronephrosis
[2021-08-26] MEDS ORDERED: NA CHLORIDE 0.9% 50 ML ONE (15:06)
[2021-08-26] MEDS ORDERED: CEFTRIAXONE 1000 MG/VIAL ONE (15:06)
[2021-08-26] MEDS ORDERED: HYDROMORPHONE HCL 1 MG/ML INJ ONE ×2 (15:42→17:02)
--- NOTE | 2021-08-26 17:21 | EDPHYS ---
Physician Documentation [facility] Name: Tory Reese Age: 56 yrs Sex: Female : 1965 Arrival Date: 08/26/2021 Time: 12:12 Bed 24 Private MD: ED Physician Ian Hernandez HPI: 08/26 12:45 This 56 yrs old Female presents to ER via Ambulatory with complaints of Possible Kidney cp Stone. 12:45 The patient complains of pain in the left flank and right flank. cp 12:45 Associated signs and symptoms: Pertinent positives: nausea, vomiting, Pertinent cp negatives: diarrhea, fever, pain radiating to the lower extremities. The patient has been recently seen by a physician: in [place], yesterday, with similar presenting complaints, and apparently given a diagnosis of left side 6 mm ureter stone, CT scan was done, was given a prescription for pain medications, was given a prescription for an antiemetic, and was sent to the [facility] Emergency Department for further evaluation, but the patient's symptoms have worsened. 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 - Social history:: Smoking status: Patient denies any tobacco usage or history of. Patient/guardian denies using alcohol. ROS: 12:50 Back: Positive for flank pain, bilaterally, Negative for pain at rest, pain with cp movement. 12:50 Eyes: Negative for injury, pain, redness, and discharge. cp 12:50 Constitutional: Negative for body aches, chills, fever, poor PO intake. 12:50 ENT: Negative for drainage from ear(s), ear pain, sore throat, difficulty swallowing, difficulty handling secretions. 12:50 Cardiovascular: Negative for chest pain, palpitations. 12:50 Respiratory: Negative for cough, shortness of breath, wheezing. 12:50 Abdomen/GI: Positive for nausea and vomiting, Negative for diarrhea, constipation. 12:50 : Negative for vaginal bleeding, vaginal discharge. 12:50 Neuro: Negative for altered mental status, headache, weakness. 12:50 All other systems are negative. Exam: 12:55 Constitutional: The patient appears in no acute distress, alert, awake, cp non-diaphoretic, non-toxic, well developed, well nourished, obese, uncomfortable. 12:55 Head/Face: Normocephalic, atraumatic. cp 12:55 Eyes: Periorbital structures: appear normal, Conjunctiva: normal, no exudate, no injection, Sclera: no appreciated abnormality, Lids and lashes: appear normal, bilaterally. 12:55 ENT: External ear(s): are unremarkable, Nose: is normal, Mouth: Lips: moist, Oral mucosa: pink and intact, moist, Posterior pharynx: Airway: no evidence of obstruction, patent. 12:55 Chest/axilla: Inspection: normal, Palpation: is normal, no crepitus, no tenderness. 12:55 Cardiovascular: Rate: normal, Rhythm: regular, Edema: is not appreciated, JVD: is not appreciated. 12:55 Respiratory: the patient does not display signs of respiratory distress, Respirations: normal, no use of accessory muscles, no retractions, labored breathing, is not present, Breath sounds: are clear throughout, no decreased breath sounds, no stridor, no wheezing. 12:55 Abdomen/GI: Inspection: obese Bowel sounds: active, all quadrants, Palpation: soft, in all quadrants, moderate abdominal tenderness, in the right lower quadrant and left lower quadrant, rebound tenderness, is not appreciated, voluntary guarding, is not appreciated, involuntary guarding, is not appreciated. 12:55 Back: ROM is normal, CVA tenderness, that is moderate, is noted on the left. 12:55 Skin: cellulitis, is not appreciated, no rash present. 12:55 Neuro: Orientation: to person, place \\T\\ time. Mentation: is normal, Motor: moves all fours, strength is normal, Sensation: is normal. Vital Signs: 12:28 BP 134 / 81; Pulse 82; Resp 18; Temp 98.3(TE); Pulse Ox 99% on R/A; Weight 129.73 kg; ld1 Height 5 ft. 5 in. (165.10 cm); Pain 8/10; 13:19 BP 124 / 71; Pulse 74; Resp 18; Pulse Ox 96% on R/A; ld1 14:33 BP 129 / 74; Pulse 80; Resp 20; Pulse Ox 97% on R/A; ld1 15:22 BP 132 / 72; Pulse 84; Resp 18; Pulse Ox 97% on R/A; ld1 16:09 BP 109 / 71; Pulse 66; Resp 18; Pulse Ox 96% on R/A; ld1 16:42 BP 124 / 84; Pulse 73; Resp 18; Pulse Ox 96% on R/A; ld1 12:28 Body Mass Index 47.59 (129.73 kg, 165.10 cm) ld1 MDM: 12:27 Patient medically screened. 17:00 Data reviewed: vital signs, nurses notes, lab test result(s), radiologic studies, CT cp scan. 17:00 Counseling: I had a detailed discussion with the patient and/or guardian regarding: the cp historical points, exam findings, and any diagnostic results supporting the discharge/admit diagnosis, lab results, radiology results. 17:10 Physician consultation: Chas Rodriguez MD was called at 17:10, was contacted at 17:10, regarding consult, patient's condition, is available for placement of ureter stent. 08/26 12:32 Order name: CBC with Diff; Complete Time: 13:21 08/26 16:16 Interpretation: Reviewed. 08/26 12:32 Order name: CMP; Complete Time: 13:21 08/26 13:21 Interpretation: AST 10; ALB 3.2; A/G 1.0. 08/26 12:32 Order name: Lipase; Complete Time: 13:21 08/26 12:32 Order name: Urine Microscopic Only; Complete Time: 14:50 08/26 16:16 Interpretation: Reviewed. 08/26 12:50 Order name: Urine Dipstick-Ancillary; Complete Time: 13:21 EDMS 08/26 13:43 Order name: Urine Culture EDCA 08/26 13:26 Order name: CT Stone Protocol 08/26 17:23 Order name: COVID-19 SARS RT PCR (Document "Date of Onset" if Symptomatic) 08/26 18:12 Order name: Basic Metabolic Panel EDMS 08/26 18:12 Order name: Basic Metabolic Panel EDMS 08/26 18:12 Order name: CBC with Automated Diff EDMS 08/26 18:12 Order name: CBC with Automated Diff EDMS 08/26 18:12 Order name: Magnesium EDMS 08/26 18:12 Order name: Magnesium EDMS 08/26 12:32 Order name: IV Saline Lock; Complete Time: 12:35 cp 08/26 12:32 Order name: Labs collected and sent; Complete Time: 12:35 cp 08/26 12:32 Order name: Urine Dipstick-Ancillary (obtain specimen); Complete Time: 12:51 cp 08/26 12:32 Order name: Urine Test (obtain specimen); Complete Time: 13:17 cp 08/26 13:29 Order name: Stone Protocol; Complete Time: 14:50 EDMS 08/26 16:18 Interpretation: Report reviewed. 08/26 16:18 Order name: PO challenge; Complete Time: 16:28 cp 08/26 17:05 Order name: NPO; Complete Time: 17:10 cp 08/26 18:12 Order name: Regular EDMS Administered Medications: 12:47 Drug: Zofran (Ondansetron) 4 mg Route: IVP; Site: right antecubital; ld1 12:47 Drug: morphine 4 mg Route: IVP; Site: right antecubital; ld1 15:46 Follow up: Response: No adverse reaction ld1 12:47 Drug: NS 0.9% 500 ml Route: IV; Rate: 250 ml/hr; Site: right antecubital; ld1 15:45 Follow up: Response: No adverse reaction; IV Status: Completed infusion; IV Intake: ld1 500ml 15:12 Drug: Rocephin - (cefTRIAXone) 1 grams Route: IVPB; Infused Over: 30 mins; Site: right ld1 antecubital; 15:45 Follow up: Response: No adverse reaction; IV Intake: 50ml ld1 15:45 Drug: Dilaudid (HYDROmorphone) 1 mg Route: IVP; Site: right antecubital; ld1 15:46 Follow up: Response: No adverse reaction ld1 17:02 Drug: Dilaudid (HYDROmorphone) 1 mg Route: IVP; Site: right antecubital; ld1 17:03 Drug: Zofran (Ondansetron) 4 mg Route: IVP; Site: right antecubital; ld1 17:50 Drug: NS 0.9% 1000 ml Route: IV; Rate: 100 ml/hr; Site: right antecubital; ld1 Disposition Summary: 08/26/21 17:21 Hospitalization Ordered Hospitalization Status: Observation cp Provider: Pratik Enciso cp Location: Telemetry/MedSurg (observation) cp Condition: Stable cp Problem: new cp Symptoms: have improved cp Bed/Room Type: Standard cp Room Assignment: cp Diagnosis - Calculus of ureter - left cp Forms: - Medication Reconciliation Form cp - SBAR form cp Addendum: 08/29/2021 10:31 Co-signature as Attending Physician, Ian Hernandez DO I was immediately available on-site m s3 in the Emergency Department for consultation in the care of the patient. . Signatures: Dispatcher [employer] EDMS Shahid Swenson PA PA cp Sims, Marcus, DO DO ms3 Danielle Kohler, RN RN ld1
--- NOTE | 2021-08-26 17:21 | ER ---
Nurse's Notes [facility] Name: Tory Reese Age: 56 yrs Sex: Female : 1965 Arrival Date: 08/26/2021 Time: 12:12 Bed 24 Private MD: Diagnosis: Calculus of ureter-left Presentation: 08/26 12:28 Chief complaint: Patient states: Pt went to [facility] - 6mm kidney stone. C/O left flank ld1 pain, abdominal pain, N/V. Coronavirus screen: At this time, the client does not indicate any symptoms associated with coronavirus-19. Ebola Screen: No symptoms or risks identified at this time. Initial Sepsis Screen: Does the patient meet any 2 criteria? No. Patient's initial sepsis screen is negative. Does the patient have a suspected source of infection? No. Patient's initial sepsis screen is negative. Risk Assessment: Do you want to hurt yourself or someone else? Patient reports no desire to harm self or others. Onset of symptoms was August 26, 2021. 12:28 Method Of Arrival: Ambulatory ld1 12:28 Acuity: JOE 4 ld1 Triage Assessment: 12:35 General: Appears in no apparent distress. comfortable, Behavior is calm, cooperative, ld1 appropriate for age. Pain: Complains of pain in low back area and abdomen Pain does not radiate. Pain currently is 8 out of 10 on a pain scale. EENT: No signs and/or symptoms were reported regarding the EENT system. Neuro: Level of Consciousness is awake, alert, obeys commands, Oriented to person, place, time, situation. Cardiovascular: Capillary refill < 3 seconds Patient's skin is warm and dry. Respiratory: Airway is patent Respiratory effort is even, unlabored. GI: Abdomen is round non-distended, Reports nausea, vomiting. : No signs and/or symptoms were reported regarding the genitourinary system. Derm: No signs and/or symptoms reported regarding the dermatologic system. Musculoskeletal: No signs and/or symptoms reported regarding the musculoskeletal system. WOODS WARDEN: 12:35 LMP N/A - Post-menopause ld1 Historical: - Allergies: 12:35 Haloperidol; ld1 12:35 Hand Transfer Controller; ld1 12:35 Latex, Natural Rubber; ld1 12:35 Sulfa (Sulfonamide Antibiotics); ld1 - Home Meds: 12:35 meloxicam 7.5 mg Oral tab 1 tab once daily [Active]; ld1 - PSHx: 12:35 Appendectomy; section; Cholecystectomy; ld1 - Immunization history:: Adult Immunizations up to date, Client reports having NOT received the Covid vaccine. - Social history:: Smoking status: Patient denies any tobacco usage or history of. Patient/guardian denies using alcohol. Screenin:36 Abuse screen: Denies threats or abuse. Denies injuries from another. Nutritional ld1 screening: No deficits noted. Tuberculosis screening: No symptoms or risk factors identified. Fall Risk None identified. Assessment: 12:36 Reassessment: see triage assessment. ld1 14:33 Reassessment: Patient appears in no apparent distress at this time. Patient and/or ld1 family updated on plan of care and expected duration. Pain level reassessed. Patient is alert, oriented x 3, equal unlabored respirations, skin warm/dry/pink. 15:22 Reassessment: Patient appears in no apparent distress at this time. Patient and/or ld1 family updated on plan of care and expected duration. Pain level reassessed. 16:09 Reassessment: Patient appears in no apparent distress at this time. Patient and/or ld1 family updated on plan of care and expected duration. Pain level reassessed. Patient is alert, oriented x 3, equal unlabored respirations, skin warm/dry/pink. Patient states feeling better. 16:42 Reassessment: Patient appears in no apparent distress at this time. Patient and/or ld1 family updated on plan of care and expected duration. Pain level reassessed. Patient is alert, oriented x 3, equal unlabored respirations, skin warm/dry/pink. Vital Signs: 12:28 BP 134 / 81; Pulse 82; Resp 18; Temp 98.3(TE); Pulse Ox 99% on R/A; Weight 129.73 kg; ld1 Height 5 ft. 5 in. (165.10 cm); Pain 8/10; 13:19 BP 124 / 71; Pulse 74; Resp 18; Pulse Ox 96% on R/A; ld1 14:33 BP 129 / 74; Pulse 80; Resp 20; Pulse Ox 97% on R/A; ld1 15:22 BP 132 / 72; Pulse 84; Resp 18; Pulse Ox 97% on R/A; ld1 16:09 BP 109 / 71; Pulse 66; Resp 18; Pulse Ox 96% on R/A; ld1 16:42 BP 124 / 84; Pulse 73; Resp 18; Pulse Ox 96% on R/A; ld1 12:28 Body Mass Index 47.59 (129.73 kg, 165.10 cm) ld1 ED Course: 12:12 Patient arrived in ED. mr 12:13 Shahid Swenson PA is PHCP. cp 12:13 Ian Hernandez DO is Attending Physician. cp 12:28 Danielle Kohler, RICCI is Primary Nurse. ld1 12:31 Triage completed. ld1 12:35 Arm band placed on right wrist. ld1 12:36 Patient has correct armband on for positive identification. Placed in gown. Bed in low ld1 position. Call light in reach. Side rails up X2. environmental monitoring technician on. Pulse ox on. NIBP on. Door closed. Noise minimized. Warm blanket given. 12:36 No provider procedures requiring assistance completed. ld1 12:50 Inserted saline lock: 20 gauge in right antecubital area, using aseptic technique. zm Blood collected. 12:51 CBC with Diff Sent. zm 12:51 CMP Sent. zm 12:51 Lipase Sent. zm 12:51 Urine Microscopic Only Sent. zm 14:11 Stone Protocol In Process Unspecified. EDMS 17:19 Pratik Enciso MD is Hospitalizing Provider. cp 17:51 COVID-19 SARS RT PCR (Document "Date of Onset" if Symptomatic) Sent. ld1 Administered Medications: 12:47 Drug: Zofran (Ondansetron) 4 mg Route: IVP; Site: right antecubital; ld1 12:47 Drug: morphine 4 mg Route: IVP; Site: right antecubital; ld1 15:46 Follow up: Response: No adverse reaction ld1 12:47 Drug: NS 0.9% 500 ml Route: IV; Rate: 250 ml/hr; Site: right antecubital; ld1 15:45 Follow up: Response: No adverse reaction; IV Status: Completed infusion; IV Intake: ld1 500ml 15:12 Drug: Rocephin - (cefTRIAXone) 1 grams Route: IVPB; Infused Over: 30 mins; Site: right ld1 antecubital; 15:45 Follow up: Response: No adverse reaction; IV Intake: 50ml ld1 15:45 Drug: Dilaudid (HYDROmorphone) 1 mg Route: IVP; Site: right antecubital; ld1 15:46 Follow up: Response: No adverse reaction ld1 17:02 Drug: Dilaudid (HYDROmorphone) 1 mg Route: IVP; Site: right antecubital; ld1 17:03 Drug: Zofran (Ondansetron) 4 mg Route: IVP; Site: right antecubital; ld1 17:50 Drug: NS 0.9% 1000 ml Route: IV; Rate: 100 ml/hr; Site: right antecubital; ld1 Medication: 12:36 VIS not applicable for this client. ld1 Intake: 15:45 IV: 50ml; Total: 50ml. ld1 15:45 IV: 500ml; Total: 550ml. ld1 Outcome: 17:21 Decision to Hospitalize by Provider. cp 18:23 Patient left the ED. ss Signatures: Dispatcher [employer] Sabrina Villalta Shelby, RN RN ss Shahid Swenson PA PA cp Danielle Kohler RN RN ld1 Maggy Laguna
[2021-08-26] MEDS ORDERED: NA CHLORIDE 0.9% 1,000 ML ONE (17:48)
[2021-08-26] MEDS ORDERED: propofoL 200 MG/20 ML VIAL IV ONE (18:09)
[2021-08-26] MEDS ORDERED: SUCCINYLCHOLINE 20 MG/ML (10 ML) IV ONE (18:09)
[2021-08-26] MEDS ORDERED: LIDOCAINE 1% MPF 5 ML VIAL ONE (18:13)
[2021-08-26] MEDS ORDERED: dexAMETHasone 10 MG/ML VIAL ONE (18:14)
[2021-08-26] MEDS ORDERED: KETOROLAC 30 MG/ML INJ ONE (18:14)
[2021-08-26] MEDS ORDERED: FENTANYL CITR 100 MCG/2 ML ONE (18:14)
--- NOTE | 2021-08-26 18:16 | P.HP ---
Certification for Inpatient Patient admitted to: Observation With expected LOS: <2 Midnights Practitioner: I am a practitioner with admitting privileges, knowledge of patient current condition, hospital course, and medical plan of care. Services: Services provided to patient in accordance with Admission requirements found in Title 42 Section 412.3 of the Code of Federal Regulations Patient History Date of Service: 08/26/21 Reason for admission: Kidney stone, hydronephrosis, abdominal pain. History of Present Illness: 56-year-old female patient who came to the ER with complaint of abdominal pain. She was recently seen and evaluated for abdominal pain and was found to have a 6 mm kidney stone and was given pain medication and discharged however pain persisted with associated nausea with vomiting and inability to keep any pills or food down. She reported to the ER at [facility] and was found to have a 8 millimeter kidney stone with associated hydronephrosis. She was asked to be admitted for evaluation of kidney stone with obstructive uropathy and was deemed to be in need of urgent surgical intervention. She was asked to be admitted on observation under hospitalist service. Allergies Unable to Assess Allergy (Unverified 08/26/21 17:57) Review of Systems General: Unremarkable Eyes: Unremarkable ENT: Unremarkable Respiratory: Unremarkable Cardiovascular: Unremarkable Gastrointestinal: Nausea, Vomiting, Abdominal Pain, Unremarkable Genitourinary: Unremarkable Musculoskeletal: Unremarkable Integumentary: Unremarkable Neurological: Unremarkable Physical Examination - Physical Exam General: Alert, Oriented x3 HEENT: Atraumatic, Normocephalic Neck: Supple Respiratory: Normal air movement Cardiovascular: Regular rate/rhythm, Normal S1 S2 Gastrointestinal: Tenderness Musculoskeletal: No swelling Neurological: Normal speech, Normal strength at 5/5 x4 extr - Studies Laboratory Data (last 24 hrs) 08/26/21 12:38: Sodium 140, Potassium 3.6, BUN 14, Creatinine 0.70, Glucose 96, Total Bilirubin 0.4, AST 10 L, ALT 14, Alkaline Phosphatase 80, Lipase 50 L 08/26/21 12:38: WBC 5.3, Hgb 12.6, Hct 36.9, Plt Count 236 Assessment and Plan - Plan Kidney stone with hydronephrosis: Patient does have significant hydronephrosis secondary to 8 mm kidney stone obstructing left ureter. She will have urgent surgical intervention by urology. Continue as needed morphine for pain control. Continue evaluation. Empiric antibiotic with Rocephin started. Will obtain urine culture for appropriate antibiotic adjustment pending culture finalization. Prophylaxis: Lovenox for DVT CODE STATUS: Full code Disposition: for possible discharge in next 24hr postoperative intervention. - Advance Directives Does patient have a Living Will: No Does patient have a Durable POA for Healthcare: No
[2021-08-26] MEDS ORDERED: CEFTRIAXONE 1,000 MG in NA CHLORIDE 0.9% 50 ML IVPB ONE (18:17)
[2021-08-26] MEDS ORDERED: ROCURONIUM 50 MG/5 ML VIAL IV ONE (18:24)
[2021-08-26] MEDS ORDERED: GLYCOPYRROLATE 0.2 MG/ML SYR ONE (19:35)
[2021-08-26] MEDS ORDERED: NEOSTIGMINE 1 MG/ML -10 ML VIAL ONE (19:50)
[2021-08-26 19:52] VITALS: O2SAT 100
[2021-08-26] MEDS ORDERED: HYDROCODONE/APAP 5/325 MG TAB PO PRN (19:56)
[2021-08-26] MEDS ORDERED: PHENAZOPYRIDINE 100MG TAB PO ONE (19:56)
--- NOTE | 2021-08-26 20:22 | RAD REPORT ---
EXAM DESCRIPTION: RAD - Urography Retrograde - 08/26/2021 7:53 pm CLINICAL HISTORY: ICD N 20.0 FINDINGS: 8 fluoroscopic spot images obtained. Fluoroscopy time .1 minutes Left ureter was cannulated and contrast administered. Subsequently an ureteral stent was placed.
[2021-08-26] MEDS: NA CHLORIDE 0.9% 1,000 ML IV SCH (21:25)
[2021-08-27] MEDS: ONDANSETRON 4 MG/2 ML VIAL IV PRN ×2 (03:11→08:55)
[2021-08-27] MEDS: MORPHINE 2 MG/ML SYR IV PRN ×2 (03:12→08:55)
[2021-08-27 05:00] LABS: Absolute Lymphocytes (CBC) 0.5 K/uL (0.7-4.9); Hematocrit 36.9 % (36.0-45.0); Lymphocytes % 6.9 % (15.3-44.8); MPV 8.2 fL (7.6-11.3); RBC Red Blood Cell Count 4.28 M/uL (3.86-4.86)
[2021-08-27 05:14] LABS: Magnesium 1.8 mg/dL (1.8-2.4); Potassium 3.8 mmol/L (3.5-5.1)
[2021-08-27] MEDS: NA CHLORIDE 0.9% 1,000 ML IV SCH (07:13)
[2021-08-27] MEDS ORDERED: ENOXAPARIN 40 MG/0.4 ML SQ SCH (09:00)
--- NOTE | 2021-08-27 09:07 | P.DS ---
Admission Date: 08/26/21 Discharge Date: 08/27/21 Disposition: ROUTINE DISCHARGE Discharge Condition: GOOD Reason for Admission: Kidney stone, hydronephrosis, abdominal pain. Brief History of Present Illness: 56-year-old female patient who came to the ER with complaint of abdominal pain. She was recently seen and evaluated for abdominal pain and was found to have a 6 mm kidney stone and was given pain medication and discharged however pain persisted with associated nausea with vomiting and inability to keep any pills or food down. She reported to the ER at [facility] and was found to have a 8 millimeter kidney stone with associated hydronephrosis. She was asked to be admitted for evaluation of kidney stone with obstructive uropathy and was deemed to be in need of urgent surgical intervention. She was asked to be admitted on observation under hospitalist service. Hospital Course: She had successful surgery and ureteral stent placement for management of ureteral stone and hydronephrosis management. She was deemed stable for discharge by urology and to follow-up on outpatient. Preliminary urine culture grew gram-negative lindsay. Prescription of cefpodoxime given for management of possible E. coli UTI. She will follow-up with urology within the next 2 weeks for management recommendation. Vital Signs/Physical Exam: Temp Pulse Resp BP Pulse Ox 97.2 F 61 16 124/69 96 08/27/21 08:00 08/27/21 08:00 08/27/21 08:00 08/27/21 08:00 08/27/21 08:00 General: Alert, Oriented x3 HEENT: Atraumatic, Normocephalic Neck: Supple Respiratory: Normal air movement Cardiovascular: Regular rate/rhythm, Normal S1 S2 Gastrointestinal: Soft and benign Musculoskeletal: No swelling Neurological: Normal speech Laboratory Data at Discharge: WBC 7.4 K/uL (4.3-10.9) D 08/27/21 04:07 Hgb 12.6 g/dL (12.0-15.0) 08/27/21 04:07 Hct 36.9 % (36.0-45.0) 08/27/21 04:07 Plt Count 226 K/uL (152-406) 08/27/21 04:07 Sodium 138 mmol/L (136-145) 08/27/21 04:07 Potassium 3.8 mmol/L (3.5-5.1) 08/27/21 04:07 BUN 12 mg/dL (7-18) 08/27/21 04:07 Creatinine 0.65 mg/dL (0.55-1.3) 08/27/21 04:07 Glucose 145 mg/dL (74-106) H 08/27/21 04:07 Magnesium 1.8 mg/dL (1.8-2.4) 08/27/21 04:07 Total Bilirubin 0.4 mg/dL (0.2-1.0) 08/26/21 12:38 AST 10 U/L (15-37) L 08/26/21 12:38 ALT 14 U/L (12-78) 08/26/21 12:38 Alkaline Phosphatase 80 U/L (45-117) 08/26/21 12:38 Lipase 50 U/L (73-393) L 08/26/21 12:38 Home Medications: Aspirin 325 mg PO BID 08/26/21 Meloxicam [Mobic] 15 mg PO BEDTIME 08/26/21 Physician Discharge Instructions: PROBLEM: (list out Acute Problems for the Current visit) GOAL: Clear understanding of disease process INSTRUCTIONS: Diet: Low sodium Activity: Ad naty You have a left ureteral stent in place. This must be removed as it is a foreign body in your urinary tract. It can remain in place for a maximum of 6 months. The stone causing obstruction to your left kidney must still be managed. It will require ureteroscopy with laser lithotripsy. Please contact my office to arrange follow-up to discuss the surgery and arrange scheduling. I have sent a prescription for an antibiotic, Keflex, for you to take for the next 5 days. I see your other physician has sent a prescription for a narcotic, Tylenol with codeine on 08/24/2021. I recommend you alternate plain Tylenol (up to 1000 mg every 6 hours maximum) every 4 hours with Motrin/ibuprofen (up to 800 mg every 8 hours maximum) for pain. Take the narcotic if pain control is insufficient with the Tylenol alternating with Motrin. Take care to keep the entire 24-hour daily dose of Tylenol/acetaminophen less than 4000 mg / 4 g. Notify me if you develop any fever (temperature greater than 100.4 Fahrenheit), intractable nausea or vomiting, increasing pain not controlled by pain medications, or other unusual signs or symptoms. It is common to see a degree of blood in the urine and occasionally a small clot of blood. It is also common to have a degree of flank discomfort, especially when voiding. This is due to the presence of the stent and the kidney stone. It is also common to have to urinate frequently or have the sense of urge to urinate associated with the stent. If this becomes particularly bothersome, notify me and we can prescribe Ditropan/oxybutynin to assist with that. All the best! WBR Diet: Low sodium Activity: Ad naty Followup: AN NOLAN [Primary Care Provider] -
--- NOTE | 2021-08-27 11:03 | OP ---
Surgeon: LEIGH EVANS Preoperative Diagnoses: 1.Left ureterolithiasis. 2.Left hydronephrosis. 3.Intractable left flank pain with nausea and vomiting. Postoperative Diagnoses: 1.Left ureterolithiasis. 2.Left hydronephrosis. 3.Intractable left flank pain with nausea and vomiting. Principle Procedure: 1.Cystoscopy. 2.Left retrograde pyelography. 3.Left ureteral stent placement. Indication For Procedure: Ms. Reese presented to the emergency department earlier today as a recurren t stone former with an obstructing 5-6 mm mid proximal ureteral calculus on the left causing mild to moderate hydronephrosis and associated with intractable nausea, vomiting, and pain. As a result, uro logic intervention was requested and I recommended the placement of a left ureteral stent. Procedure In Detail: The patient was consented in the preoperative holding area before being transfe rred to the operative suite where general anesthesia was induced. She had been given a dose of ceftr iaxone IV antimicrobial prophylaxis in the emergency department and pneumo boots were provided for DV T prophylaxis. She was placed in the lithotomy position, padded and secured to the table appropriate ly. Her genitalia were prepped using Hibiclens and draped in standard fashion. Of note, she had a l atex allergy, so all gloves and materials were latex-free. The case was begun using a 22-Fijian rigi d cystoscope to traverse the urethra and enter the bladder with ease. The bladder was surveyed and t here were no papillary mucosal lesions, foreign bodies, or stones noted throughout. Within the toña ne, there was some increased vascularity noted of uncertain significance. The ureteral orifices were orthotopic in location and the left ureteral orifice was cannulated using the tip of a 5-Fijian uret eral access catheter. Spot fluoroscopic imagery did visualize the presence of a radiopaque potential calculus in the region of the ureter on the left side. As a result, I utilized a 5-Fijian ureteral access catheter to perform a retrograde pyelogram. Left retrograde pyelography: Using a 70:30 mixture of Omnipaque and saline, contrast was injected vi a the 5-Fijian ureteral access catheter and did propagate up the ureter in a relatively delayed and o bstructed fashion before surpassing the radiodense structure in the mid proximal ureter before a smal l amount of contrast did enter the renal pelvis. No effort was made to completely delineate the enti rety of the renal pelvis in the event infection occult was present. As a result, I then passed a Sen sor wire via the 5-Fijian ureteral access catheter into the upper pole of the kidney where a coil was observed fluoroscopically. Over the Sensor wire, I then passed a 6-Fijian x 28 cm double-J ureteral stent with ease into the upper pole of the kidney where a coil was formed fluoroscopically and 1 cys toscopically was formed in the bladder. The bladder was then decompressed of fluid and urine, and leatha cummins was taken out of lithotomy position. She was then awakened from general anesthesia, transferred to a stretcher, and then transferred to the recovery room in good condition. Complications: None. Discharge Disposition: She should follow up in the Urology Clinic within the next several weeks for operative discussion and surgical planning. She can be booked for definitive left ureteroscopy with laser lithotripsy and stent placement in the coming weeks within the next 30 days if scheduling avail ability permits. I will also discuss with her the potential for shockwave lithotripsy since the ston e is radiopaque, if it remains visible alongside the ureteral stent. ROB/MODL Voice ID: [id number] Report ID: [id number]
--- NOTE | 2021-08-27 11:33 | CON ---
Reason For Consultation: Left obstructive ureterolithiasis and intractable nausea, vomiting, and pat n. History Of Present Illness: Ms. Reese is a 56-year-old woman, G5, P2, A3 section deliveries with no significant past medical history, presents with a longstanding history of recurrent ureteroli thiasis. She has had kidney stones for over 30 years and her most recent event prior to this was in 2018. At that time, she required ureteroscopic intervention, and while she has passed other stones i n the interim, they have not required surgical intervention. She denies any fever or chills, but she acknowledges significant pain associated with nausea and vomiting. The emergency department gave he r 2 mg of Dilaudid and did not achieve control of her pain. As a result, despite normal renal functi on and no signs of infection, urologic intervention with stent placement was requested. Past Medical History: As above. Past Surgical History: sections as above. Family History: Kidney stones, but no other urologic malignancy. Social History: She smoked transiently as a teenager. Allergies: TO MEDICATIONS INCLUDE SULFA AND LATEX AMONG OTHER IDIOSYNCRATIC AGENTS. Physical Examination: General: At the time of this evaluation, the patient was reasonably comfortable appearing and in no acute distress. She was alert, awake, and oriented. Lungs: There was no dyspnea or sign of respiratory distress. Abdomen: She was reclined in the stretcher, noting pain in the left flank that radiated into the lef t upper abdomen. Her abdomen was soft, nontender, and morbidly obese. Laboratory Analysis: Revealed a white count of 5.3, H/H of 12.6 and 36.9, and platelet count of 236. Renal function with creatinine of 0.7 associated with low lipase and normal LFTs. Urine revealed 5-10 wbc's, 5-10 rbc's per high-power field with 20-50 bacteria associated with absenc e of nitrites and leukocyte esterase. CT scan was completed and I reviewed the images in detail relative to her urologic tract and noted th e absence of any nephrolithiasis bilaterally, but the presence of an approximately 5 mm calculus in t he mid proximal ureter on the left side. There was no associated perinephric stranding, but mild-to- moderate hydronephrosis was noted. 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 Given the intractable nature of her pain associated with nausea or vomiting, we will proceed with ope rative intervention with cystoscopy, left retrograde pyelogram, and stent placement today. I counseled the patient in detail about the procedure as well as the risks and side effects and the c onsent was signed in my presence. She had undergone these procedures in the past and was familiar. I counseled the patient that attempt at ureteroscopic management with laser lithotripsy is atypically performed in this setting because of the risk of undiagnosed infection in the urine. As a result, teddy cummins would plan to follow up in the outpatient environment and to discuss the planning definitive ureter oscopic intervention with laser lithotripsy. After which, the stent would be removed intraorally. Postoperative Plan: Anticipated discharge this evening. ROB/JENN Voice ID: [id number] Report ID: [id number]
[2021-08-27 12:04] VITALS: BP 122/59; TEMP 97.7
== END 2021-08-27 12:30 | disposition home or self-care (01) ==
LOC: ER 12:10 → ERHOLD 18:19 → 2ND 18:36
PROVIDERS: ADMIT Internal Medicine Nephrology; ATTEND Internal Medicine Nephrology
PROC: BT1FYZZ Fluoroscopy of Left Kidney, Ureter and Bladder using Other Contrast (ICD-10-PCS; 2021-08-26)
PROC: 0T778DZ Dilation of Left Ureter with Intraluminal Device, Via Natural or Artificial Opening Endoscopic (ICD-10-PCS; principal; 2021-08-26 18:30)
DX: N13.2 Hydronephrosis with renal and ureteral calculous obstruction (principal); R11.2 Nausea with vomiting, unspecified; E66.01 Morbid (severe) obesity due to excess calories; Z68.42 Body mass index [BMI] 45.0-49.9, adult; Z88.2 Allergy status to sulfonamides; Z91.040 Latex allergy status; Z91.048 Other nonmedicinal substance allergy status; Z28.310 Unvaccinated for COVID-19; Z20.822 Contact with and (suspected) exposure to COVID-19
CPT/HCPCS: 52332; 52005; 96361; 87088; 85025 ×2; 87086; 80048; 36415; 83735; 87077; 87186; 83690; 80053; 76377; 74176; 74420; 96375; 96374; 99284; U0003; J2704; J2710; J0330; J1650; J3010; J1100; J2270 ×2; J1170 ×2; G0378 ×4; J7040; J7030 ×3; J2405 ×5; 81003; 81015

== ENCOUNTER 2021-08-30 17:30 | Emergency (ER) | payer OTHER ==
--- OUTSIDE RECORDS SUMMARY | 2021-08-30 17:33 | XMS REPORT | Continuity of Care Document ---
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 HospitalLDL Cholesterol (Measured)2019-06-18 04:41:00 Test Item Value Reference Range Interpretation Comments LDL Cholesterol (Measured) (test code = 118 0-130 03129-3) *LDL Cholesterol <130 mg/dL, No CHD or CHD Risk Equivalent <100 mg/dL, With CHD or CHD Risk Equivalent LDL Cholesterol Therapeutic Goal:100 mg/dL or Less if CHD or CHD Risk Equivalent Present<130 mg/dL if No CHD or REq; 2 or more Risk Factors<160 mg/dL if No CHD or REq; 0-1 Risk Factors Reference: ATP III, JOAQUIN, 285:19, 8768-04, 2001.[facility] HospitalHemoglobin A1c [id number] 04:41:00 Test Item Value Reference Range Interpretation Comments Hemoglobin A1c Percent (test code = 5.30 4.0-5.6 4548-4) Prediabetes 5.7% to 6.4%Diabetes 6.5% or higher Elevated levels of HbA1c suggest the need for moreaggressive treatmentof glycemia. The [place] DiabetesAssociation recommends that a primary goal of therapy shouldbe a HbA1c of <7% and that physicians should reevaluate thetreatment regimen in patients with HbA1c values consistently>8%. [facility] HospitalN/[id number] 04:41:00 Test Item Value Reference Range Interpretation Comments N/A (test code = 56767-5) 105 A1C Result% Estimated Avg.Glucose (EAG) 6.0% 126 mg/dL 6.5% 140 mg/dL 7.0% 154 mg/dL 7.5% 169 mg/dL 8.0% 183 mg/dL 8.5% 197 mg/dL 9.0% 212 mg/dL 9.5% 226 mg/dL 10.0% 240 mg/dL Reference: italo Parada, Diabetes Care 31: 1437, 2008.[facility] HospitalThyroid Stimulating Hormone (TSH)2019-06-17 11:14:00 Test Item Value Reference Range Interpretation Comments Thyroid Stimulating Hormone (TSH) (test 2.04 0.34-5.6 code = 3015-5) [facility] HospitalWhite Blood [id number] 02:25:00 Test Item Value Reference Range Interpretation Comments White Blood Count (test code = 6690-2) 8.7 4.1-12.9 [facility] HospitalRed Blood [id number] 02:25:00 Test Item Value Reference Range Interpretation Comments Red Blood Count (test code = 789-8) 4.84 3.64-5.20 [facility] HospitalHemoglobin2020-03-02 02:25:00 Test Item Value Reference Range Interpretation Comments Hemoglobin (test code = 718-7) 14.0 10.6-15.6 [facility] HospitalHematocrit2020-03-02 02:25:00 Test Item Value Reference Range Interpretation Comments Hematocrit (test code = 00619-7) 42.5 32.0-45.9 [facility] Corpuscular [id number] 02:25:00 Test Item Value Reference Range Interpretation Comments Mean Corpuscular Volume (test code = 87.6 74.6-98.2 66942-9) [facility] Corpuscular [id number] 02:25:00 Test Item Value Reference Range Interpretation Comments Mean Corpuscular Hemoglobin (test code 29.0 24.3-33.8 = 69343-6) [facility] Corpuscular Hgb Concent [id number] 02:25:00 Test Item Value Reference Range Interpretation Comments Mean Corpuscular Hgb Concent Diff (test 33.1 32.0-36.0 code = 98231-3) [facility] HospitalRed Cell Distribution [id number] 02:25:00 Test Item Value Reference Range Interpretation Comments Red Cell Distribution Width (test code 14.2 11.4-16.3 = 05661-1) [facility] HospitalPlatelet [id number] 02:25:00 Test Item Value Reference Range Interpretation Comments Platelet Count (test code = 777-3) 224 168441 [facility] Platelet [id number] 02:25:00 Test Item Value Reference Range Interpretation Comments Mean Platelet Volume (test code = 8.4 6.8-10.2 78027-6) [facility] HospitalGranulocytes (%)2019-06-17 02:25:00 Test Item Value Reference Range Interpretation Comments Granulocytes (%) (test code = 95893-2) 68.5 39.8-78.1 [facility] HospitalLymphocytes %2019-06-17 02:25:00 Test Item Value Reference Range Interpretation Comments Lymphocytes % (test code = 736-9) 20.0 14.1-47.6 [facility] HospitalMonocytes %2019-06-17 02:25:00 Test Item Value Reference Range Interpretation Comments Monocytes % (test code = 5905-5) 8.8 3.8-11.6 [facility] HospitalEosinophils %2019-06-17 02:25:00 Test Item Value Reference Range Interpretation Comments Eosinophils % (test code = 713-8) 1.8 0.6-7.3 [facility] HospitalBasophils %2019-06-17 02:25:00 Test Item Value Reference Range Interpretation Comments Basophils % (test code = 54299-5) 0.9 0.0-2.0 [facility] HospitalGranulocytes #2019-06-17 02:25:00 Test Item Value Reference Range Interpretation Comments Granulocytes # (test code = 58096-1) 5.9 1.6-10.1 [facility] HospitalLymphocytes #2019-06-17 02:25:00 Test Item Value Reference Range Interpretation Comments Lymphocytes # (test code = 91104-9) 1.7 0.6-6.1 [facility] HospitalMonocytes #2019-06-17 02:25:00 Test Item Value Reference Range Interpretation Comments Monocytes # (test code = 742-7) 0.8 0.2-1.5 [facility] HospitalEosinophils #2019-06-17 02:25:00 Test Item Value Reference Range Interpretation Comments Eosinophils # (test code = 711-2) 0.2 0.0-0.9 [facility] HospitalBasophils #2019-06-17 02:25:00 Test Item Value Reference Range Interpretation Comments Basophils # (test code = 40564-5) 0.1 0.0-0.2 [facility] HospitalManual [id number] 02:25:00 Test Item Value Reference Range Interpretation Comments Manual Differential (test code = Manual NO Differential) [facility] HospitalProthrombin [id number] 02:25:00 Test Item Value Reference Range Interpretation Comments Prothrombin Time (test code = 5964-2) 12.5 10.0-12.9 [facility] HospitalINR International Normalized Hqgak5725-97-30 02:25:00 Test Item Value Reference Range Interpretation [...] Thrombosis and Antiphospholipid syndrome Prevention of recurrent [place] Sixth ACCP Consensus Conference on Antithrombotic Therapy,Chest 2001; 119:Supplement 8-21.[facility] HospitalActivated Partial Thromboplast [id number] 02:25:00 Test Item Value Reference Range Interpretation Comments Activated Partial Thromboplast Time 31.1 25.1-36.5 (test code = 3173-2) [facility] Hospitalodium [id number] 02:25:00 Test Item Value Reference Range Interpretation Comments Sodium Level (test code = 2951-2) 137 135-144 [facility] HospitalPotassium [id number] 02:25:00 Test Item Value Reference Range Interpretation Comments Potassium Level (test code = 2823-3) 3.7 3.5-5.1 [facility] HospitalChloride [id number] 02:25:00 Test Item Value Reference Range Interpretation Comments Chloride Level (test code = 2075-0) 103 101-111 [facility] HospitalCarbon Dioxide [id number] 02:25:00 Test Item Value Reference Range Interpretation Comments Carbon Dioxide Level (test code = 26 22-32 8-9) [facility] HospitalAnion [id number] 02:25:00 Test Item Value Reference Range Interpretation Comments Anion Gap (test code = 65021-7) 11.7 10-20 [facility] HospitalGlucose [id number] 02:25:00 Test Item Value Reference Range Interpretation Comments Glucose Level (test code = 2345-7) 118 65-99 Prediabetes 100 to 125 mg/dlDiabetes 126 mg/dl or higher Prediabetes refers to individuals with plasma glucose levelsintermediate between those considered normal and thoseconsidered diabetic and is also referred to as impairedglucose tolerance (IGT) or impaired fasting glucose (IFG). [facility] HospitalBlood Urea [id number] 02:25:00 Test Item Value Reference Range Interpretation Comments Blood Urea Nitrogen (test code = 13 826 3094-0) [facility] HospitalCreatinine2020-03-02 02:25:00 Test Item Value Reference Range Interpretation Comments Creatinine (test code = 2160-0) 0.8 0.44-1.00 [facility] HospitalEGFR [id number] 02:25:00 Test Item Value Reference Range Interpretation Comments EGFR Note (test code = 37611-6) 99.2 63.8-143.2 eGFR (Estimated Glomerular Filtration Rate) eGFR calculation value obtained using the Baptist Health Doctors HospitalQuadratic (Q) equation. The reportable reference range isrecommended to be greater than 60 ml/min/1.73m. This is anestimation of the patient's GFR and clinical correlation isrecommended. This eGFR calculation does not account for race. This resultmay differ from other equations available. [facility] HospitalCalcium [id number] 02:25:00 Test Item Value Reference Range Interpretation Comments Calcium Level (test code = 45226-0) 9.4 8.9-10.3 [facility] HospitalAlbumin2020-03-02 02:25:00 Test Item Value Reference Range Interpretation Comments Albumin (test code = 1751-7) 4.3 3.5-5.0 [facility] Hospitaltal [id number] 02:25:00 Test Item Value Reference Range Interpretation Comments Total Bilirubin (test code = 1975-2) 0.5 0.2-1.2 [facility] HospitalAlkaline [id number] 02:25:00 Test Item Value Reference Range Interpretation Comments Alkaline Phosphatase (test code = 71 32-91 6768-6) [facility] Hospitaltal [id number] 02:25:00 Test Item Value Reference Range Interpretation Comments Total Protein (test code = 2885-2) 7.5 6.5-8.1 [facility] HospitalAlanine Aminotransferase (ALT/SGPT)2019-06-17 02:25:00 Test Item Value Reference Range Interpretation Comments Alanine Aminotransferase (ALT/SGPT) 20 7-55 (test code = 1742-6) [facility] HospitalAspartate Amino Transf (AST/SGOT)2019-06-17 02:25:00 Test Item Value Reference Range Interpretation Comments Aspartate Amino Transf (AST/SGOT) (test 25 15-41 code = 1920-8) [facility] HospitalGlobulin2020-03-02 02:25:00 Test Item Value Reference Range Interpretation Comments Globulin (test code = 95146-6) 3.2 2.3-3.5 [facility] HospitalAlbumin/Globulin [id number] 02:25:00 Test Item Value Reference Range Interpretation Comments Albumin/Globulin Ratio (test code = 1.3 1.2-2.2 1759-0) [facility] HospitalCreatine [id number] 02:25:00 Test Item Value Reference Range Interpretation Comments Creatine Kinase (test code = 2157-6) 59 38-234 [facility] HospitalCreatine Kinase [id number] 02:25:00 Test Item Value Reference Range Interpretation Comments Creatine Kinase MB (test code = 1.06 0.6-6.3 76093-5) [facility] HospitalTroponin [id number] 02:25:00 Test Item Value Reference Range Interpretation Comments Troponin I (test code = 76665-5) < 0.01 0.00-0.03 Troponin I-Interpretation Reference : [...] conditions.3. Serial sampling is critical for accurate diagnosis.[facility] HospitalMyoglobin2020-03-02 02:25:00 Test Item Value Reference Range Interpretation Comments Myoglobin (test code = 2639-3) 23 14.3-65.8 [facility]
[2021-08-30] MEDS ORDERED: HYDROMORPHONE HCL 1 MG/ML INJ ONE (19:59)
[2021-08-30] MEDS ORDERED: FAMOTIDINE 20 MG/2 ML VIAL IV ONE (19:59)
[2021-08-30] MEDS ORDERED: ONDANSETRON 4 MG/2 ML VIAL ONE (19:59)
[2021-08-30] MEDS ORDERED: NA CHLORIDE 0.9% 1,000 ML ONE (19:59)
[2021-08-30 20:00] LABS: Absolute Lymphocytes (CBC) 1.5 K/uL (0.7-4.9); Hematocrit 40.4 % (36.0-45.0); Lymphocytes % 16.9 % (15.3-44.8); MPV 7.7 fL (7.6-11.3); RBC Red Blood Cell Count 4.78 M/uL (3.86-4.86)
[2021-08-30 20:14] LABS: Albumin 3.6 g/dL (3.4-5.0); Bilirubin Total 0.4 mg/dL (0.2-1.0); Potassium 3.8 mmol/L (3.5-5.1); Protein, Total 6.9 g/dL (6.4-8.2)
[2021-08-30 20:17] LABS: Urine Blood 3+ (Negative); Urine Glucose Negative (Negative); Urine Protein 2+ (Negative)
[2021-08-30 20:45] LABS: Urine Bacteria 20-50 /HPF (<20); Urine RBC TNTC /HPF (NONE SEEN)
--- NOTE | 2021-08-30 21:00 | RAD REPORT ---
EXAM DESCRIPTION: US - Renal Ultrasound-Complete - 08/30/2021 8:51 pm CLINICAL HISTORY: left flank pain Flank pain COMPARISON: Stone Protocol dated 08/26/2021 FINDINGS: Both kidneys are normal in size, shape and echotexture. The right kidney measures 11.8 x 6.4 x 4.8 cm. No hydronephrosis, focal mass or perinephric fluid. The left kidney measures 12.0 x 6.1 x 4.8 cm. Mild left hydronephrosis. The urinary bladder is incompletely distended without gross abnormality seen. IMPRESSION: Mild left hydronephrosis.
--- NOTE | 2021-08-30 21:49 | EDPHYS ---
Physician Documentation [facility] Name: Tory Reese Age: 56 yrs Sex: Female : 1965 Arrival Date: 08/30/2021 Time: 17:31 Bed 18 Private MD: ROLDAN Physician Shahid Jean HPI: 08/30 19:20 This 56 yrs old Female presents to ER via Ambulatory with complaints of Blood in Urine. cp 19:20 The patient complains of pain in the left flank. Associated signs and symptoms: cp Pertinent positives: hematuria, nausea, vomiting, Pertinent negatives: fever. Patient reports having ureter stent placed by DR Rodriguez 4 days ago for left side ureter stone. Nausea and vomiting today, increased blood in urine. 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 - Social history:: Smoking status: Patient denies any tobacco usage or history of. ROS: 19:30 Constitutional: Negative for body aches, chills, fever. cp 19:30 ENT: Negative for drainage from ear(s), ear pain, sore throat, difficulty swallowing, cp difficulty handling secretions. 19:30 Cardiovascular: Negative for chest pain, edema, palpitations. 19:30 Respiratory: Negative for cough, shortness of breath, wheezing. 19:30 Abdomen/GI: Positive for nausea and vomiting, Negative for diarrhea, constipation. 19:30 Back: Positive for flank pain, on the left. 19:30 : Positive for hematuria. 19:30 Neuro: Negative for altered mental status, headache, weakness. 19:30 All other systems are negative. Exam: 19:33 Constitutional: The patient appears in no acute distress, alert, awake, cp non-diaphoretic, non-toxic, well developed, well nourished, uncomfortable. 19:33 Head/Face: Normocephalic, atraumatic. cp 19:33 Eyes: Periorbital structures: appear normal, Conjunctiva: normal, no exudate, no injection, Sclera: no appreciated abnormality, Lids and lashes: appear normal, bilaterally. 19:33 ENT: External ear(s): are unremarkable, Nose: is normal, Mouth: Lips: moist, Oral mucosa: moist, Posterior pharynx: Airway: no evidence of obstruction, patent. 19:33 Chest/axilla: Inspection: normal. 19:33 Cardiovascular: Rate: tachycardic, Rhythm: regular. 19:33 Respiratory: the patient does not display signs of respiratory distress, Respirations: normal, no use of accessory muscles, no retractions, labored breathing, is not present, Breath sounds: are clear throughout, no decreased breath sounds, no stridor, no wheezing. 19:33 Abdomen/GI: Inspection: abdomen appears normal, Bowel sounds: active, all quadrants, Palpation: soft, in all quadrants, moderate abdominal tenderness, in the posterior aspect of left lateral abdomen and anterior aspect of left lateral abdomen. 19:33 Neuro: Orientation: to person, place \T\ time. Mentation: is normal, Motor: moves all fours, strength is normal, Sensation: is normal. Vital Signs: 18:07 BP 134 / 73; Pulse 105; Resp 20; Temp 98(O); Pulse Ox 99% on R/A; Pain 8/10; ll1 20:00 Pain 8/10; lp1 20:15 BP 118 / 72; Pulse 81; Resp 18; Pulse Ox 98% on R/A; lp1 22:01 BP 107 / 88; Pulse 80; Resp 18; Pulse Ox 100% on R/A; Pain 4/10; lp1 MDM: 19:01 Patient medically screened. cp 20:00 Differential diagnosis: sepsis, infected ureteral stone, dehydration. cp 21:10 Data reviewed: vital signs, nurses notes, lab test result(s), radiologic studies, cp ultrasound. 21:10 Physician consultation: Chas Rodriguez MD was called at 21:10, was contacted at 21:10, regarding patient's condition, recommends discharge from ED and clinic f/u. 21:48 Counseling: I had a detailed discussion with the patient and/or guardian regarding: the cp historical points, exam findings, and any diagnostic results supporting the discharge/admit diagnosis, lab results, radiology results, the need for outpatient follow up, for definitive care, a urologist, to return to the emergency department if symptoms worsen or persist or if there are any questions or concerns that arise at home. 21:48 Response to treatment: the patient's symptoms have markedly improved after treatment, cp Pain and nausea markedly improved, vomiting resolved. After consult with DR Rodriguez, will discharge to home to f/u in clinic. 08/30 19:07 Order name: CBC with Diff; Complete Time: 20:42 08/30 20:43 Interpretation: Normal except: WBC 8.6. 08/30 19:07 Order name: CMP; Complete Time: 20:42 08/30 19:07 Order name: Lipase; Complete Time: 20:42 08/30 19:07 Order name: Urine Microscopic Only; Complete Time: 20:55 08/30 20:17 Order name: Urine Dipstick-Ancillary; Complete Time: 20:42 EDOR 08/30 20:43 Interpretation: Normal except: UBLD 3+; UPH 8.0; UPROT 2+; UESTR Trace. 08/30 20:49 Order name: Urine Culture EDOR 08/30 20:02 Order name: US Rp Exam Complete; Complete Time: 21:03 08/30 20:49 Order name: Urine --Ancillary (enter results); Complete Time: 21:03 mw2 08/30 19:08 Order name: IV Saline Lock; Complete Time: 19:46 08/30 19:08 Order name: Labs collected and sent; Complete Time: 19:46 08/30 19:08 Order name: Urine Dipstick-Ancillary (obtain specimen); Complete Time: 20:26 cp 08/30 19:08 Order name: Urine Test (obtain specimen); Complete Time: 20:26 08/30 21:11 Order name: PO challenge; Complete Time: 21:53 cp Administered Medications: 20:00 Drug: NS 0.9% 1000 ml Route: IV; Rate: 1 bolus; Site: right antecubital; lp1 21:53 Follow up: IV Status: Completed infusion; IV Intake: 1000ml lp1 20:00 Drug: Pepcid (famotidine) 20 mg Route: IVP; Site: right antecubital; lp1 21:53 Follow up: Response: No adverse reaction lp1 20:02 Drug: Zofran (Ondansetron) 4 mg Route: IVP; Site: right antecubital; lp1 21:53 Follow up: Response: No adverse reaction lp1 20:05 Drug: Dilaudid (HYDROmorphone) 1 mg Route: IVP; Site: right antecubital; lp1 21:52 Follow up: Response: Pain is decreased lp1 21:52 Drug: Rocephin - (cefTRIAXone) 1 grams Route: IVPB; Infused Over: 30 mins; Site: right lp1 antecubital; 22:06 Follow up: IV Status: Completed infusion; IV Intake: 50ml lp1 22:06 Not Given (Patient driving self homee): Dilaudid (HYDROmorphone) 1 mg IVP once lp1 22:06 Not Given (Patient driving self home, will get medications prescribedd): Phenergan lp1 (promethazine) 12.5 mg IVP once Disposition Summary: 08/30/21 21:48 Discharge Ordered Location: Home cp Problem: new cp Symptoms: have improved cp Condition: Stable cp Diagnosis - Other mechanical complication of indwelling ureteral stent, initial encounter cp Followup: cp - With: Chas Rodriguez MD - When: 1 - 2 days - Reason: Recheck today's complaints Discharge Instructions: - Discharge Summary Sheet cp - Ureteral Stent Implantation cp - Ureteral Stent Implantation, Care After cp Forms: - Medication Reconciliation Form cp - Thank You Letter cp - Antibiotic Education cp - Prescription Opioid Use cp Prescriptions: - promethazine 25 mg Oral Tablet - take 1 tablet by ORAL route every 6 hours As needed; 20 tablet; Refills: 0, cp Product Selection Permitted - Tylenol-Codeine #3 300 mg-30 mg Oral - take 2 tablet by ORAL route every 6-8 hours; 20 tablet; Refills: 0, Product cp Selection Permitted - cefpodoxime 200 mg Oral Tablet - take 1 tablet by ORAL route every 12 hours for 10 days with food; 20 tablet; cp Refills: 0, Product Selection Permitted Signatures: Dispatcher [employer] Dolores Prado RN RN lp1 Shahid Swenson PA PA cp Lewis, Lynsay RN RN ll1 Corrections: (The following items were deleted from the chart) 08/31 16:23 08/30 19:20 This 56 yrs old Female presents to ER via Ambulatory with complaints of cp Vaginal Bleeding. cp
--- NOTE | 2021-08-30 21:49 | ER ---
Nurse's Notes [facility] Name: Tory Reese Age: 56 yrs Sex: Female : 1965 Arrival Date: 08/30/2021 Time: 17:31 Bed 18 Private MD: Diagnosis: Other mechanical complication of indwelling ureteral stent, initial encounter Presentation: 08/30 18:07 Chief complaint: Patient states: had renal stent placed last week. now reports having ll1 blood in urine and increase in left flank pain with nausea and vomiting that began today. Coronavirus screen: Vaccine status: Patient reports being unvaccinated. Risk Assessment: Do you want to hurt yourself or someone else? Patient reports no desire to harm self or others. Onset of symptoms was August 30, 2021. 18:07 Method Of Arrival: Ambulatory ll1 18:07 Acuity: JOE 3 ll1 20:30 Ebola Screen: No symptoms or risks identified at this time. Initial Sepsis Screen: Does lp1 the patient meet any 2 criteria? No. Patient's initial sepsis screen is negative. Does the patient have a suspected source of infection? No. Patient's initial sepsis screen is negative. 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 - Social history:: Smoking status: Patient denies any tobacco usage or history of. Screenin:28 Abuse screen: Denies threats or abuse. Denies injuries from another. Nutritional lp1 screening: No deficits noted. Tuberculosis screening: No symptoms or risk factors identified. Fall Risk None identified. Assessment: 20:00 General: Appears uncomfortable, Behavior is appropriate for age. Pain: Complains of lp1 pain in left low back Pain currently is 8 out of 10 on a pain scale. Quality of pain is described as sharp. Neuro: Level of Consciousness is awake, alert, obeys commands. Cardiovascular: Patient's skin is warm and dry. Respiratory: Respiratory effort is even, unlabored. : Reports pain in left flank(s), vaginal bleeding that is noted in urine sample. Derm: Skin is pink, warm \T\ dry. Musculoskeletal: No deficits noted. 21:53 Reassessment: Patient is alert, oriented x 3, equal unlabored respirations, skin lp1 warm/dry/pink. Patient reports pain and nausea relief; tolerating drinking carbonated beverage at bedside Patient states feeling better. Patient states symptoms have improved. Vital Signs: 18:07 BP 134 / 73; Pulse 105; Resp 20; Temp 98(O); Pulse Ox 99% on R/A; Pain 8/10; ll1 20:00 Pain 8/10; lp1 20:15 BP 118 / 72; Pulse 81; Resp 18; Pulse Ox 98% on R/A; lp1 22:01 BP 107 / 88; Pulse 80; Resp 18; Pulse Ox 100% on R/A; Pain 4/10; lp1 ED Course: 17:31 Patient arrived in ED. mr 18:10 Triage completed. ll1 18:58 Shahid Swenson PA is PHCP. cp 18:58 Shahid Jean MD is Attending Physician. cp 19:46 Inserted saline lock: 22 gauge in right antecubital area, using aseptic technique. ds4 Blood collected. 19:51 Dolores Bernabe, RICCI is Primary Nurse. lp1 20:28 Patient has correct armband on for positive identification. Placed in gown. Bed in low lp1 position. Call light in reach. Pulse ox on. NIBP on. 20:30 Arm band placed on. lp1 20:53 US Rp Exam Complete In Process Unspecified. EDMS 21:45 Chas Rodriguez MD is Referral Physician. cp 21:54 No provider procedures requiring assistance completed. lp1 22:06 IV discontinued, No redness/swelling at site. Pressure dressing applied. lp1 Administered Medications: 20:00 Drug: NS 0.9% 1000 ml Route: IV; Rate: 1 bolus; Site: right antecubital; lp1 21:53 Follow up: IV Status: Completed infusion; IV Intake: 1000ml lp1 20:00 Drug: Pepcid (famotidine) 20 mg Route: IVP; Site: right antecubital; lp1 21:53 Follow up: Response: No adverse reaction lp1 20:02 Drug: Zofran (Ondansetron) 4 mg Route: IVP; Site: right antecubital; lp1 21:53 Follow up: Response: No adverse reaction lp1 20:05 Drug: Dilaudid (HYDROmorphone) 1 mg Route: IVP; Site: right antecubital; lp1 21:52 Follow up: Response: Pain is decreased lp1 21:52 Drug: Rocephin - (cefTRIAXone) 1 grams Route: IVPB; Infused Over: 30 mins; Site: right lp1 antecubital; 22:06 Follow up: IV Status: Completed infusion; IV Intake: 50ml lp1 22:06 Not Given (Patient driving self homee): Dilaudid (HYDROmorphone) 1 mg IVP once lp1 22:06 Not Given (Patient driving self home, will get medications prescribedd): Phenergan lp1 (promethazine) 12.5 mg IVP once Medication: 20:30 VIS not applicable for this client. lp1 Intake: 21:53 IV: 1000ml; Total: 1000ml. lp1 22:06 IV: 50ml; Total: 1050ml. lp1 Outcome: 21:48 Discharge ordered by MD. cp 22:06 Discharged to home ambulatory. lp1 22:06 Condition: good 22:06 Discharge instructions given to patient, Instructed on discharge instructions, follow up and referral plans. medication usage, Demonstrated understanding of instructions, follow-up care, medications, Prescriptions given X 3. 22:07 Patient left the ED. lp1 Signatures: Dispatcher [employer] SAVANNAH MathewSabrina Laura, RN RN lp1 Klaus Altamirano ds4 Shahid Swenson PA PA Jessica Shook RN RN ll1
[2021-08-30] MEDS ORDERED: CEFTRIAXONE 1000 MG/VIAL ONE (21:51)
[2021-08-30] MEDS ORDERED: NA CHLORIDE 0.9% 50 ML ONE (21:52)
[2021-08-30 22:14] VITALS: TEMP 98
[2021-08-30 22:18] VITALS: BP 107/88; O2SAT 100
== END 2021-08-30 22:07 | disposition home or self-care (01) ==
LOC: ER 17:30
DX: R31.9 Hematuria, unspecified (principal); T83.192A Other mechanical complication of indwelling ureteral stent, initial encounter; Z88.2 Allergy status to sulfonamides; Z91.040 Latex allergy status; Z88.8 Allergy status to other drugs, medicaments and biological substances
CPT/HCPCS: 96361; 87088; 85025; 87086; 36415; 81025; 83690; 80053; 76770; 96375; 96374; 99284; J1170; J7030; J2405; J3490; 81003; 81015

== ENCOUNTER 2021-09-06 08:17 | Day surgery (SDC) | payer OTHER ==
[2021-09-06] MEDS ORDERED: AMPICILLIN SODIUM 2 GM in NA CHLORIDE 0.9% 100 ML IVPB ONE (09:00)
[2021-09-06] MEDS ORDERED: Gentamicin Inj 240 MG in NA CHLORIDE 0.9% 100 ML IVPB ONE (09:00)
[2021-09-06] MEDS ORDERED: Ringers Lactate 1,000 ML IV ONE (09:02)
[2021-09-06] MEDS ORDERED: CEFAZOLIN/SWI 2gm 0 GM/0 ML SYR ONE (09:02)
[2021-09-06] MEDS ORDERED: MIDAZOLAM HCL 2 MG/2 ML INJ ONE (10:11)
[2021-09-06] MEDS ORDERED: LIDOCAINE 1% MPF 5 ML VIAL ONE (10:11)
[2021-09-06] MEDS ORDERED: propofoL 200 MG/20 ML VIAL IV ONE (10:11)
[2021-09-06] MEDS ORDERED: FENTANYL CITR 100 MCG/2 ML ONE (10:11)
[2021-09-06] MEDS ORDERED: HYDROCODONE/APAP 5/325 MG TAB PO PRN (10:13)
[2021-09-06] MEDS ORDERED: CEFAZOLIN SODIUM 1 GM/VIAL ONE (10:37)
[2021-09-06] MEDS ORDERED: dexAMETHasone 10 MG/ML VIAL ONE (10:51)
[2021-09-06] MEDS ORDERED: KETOROLAC 30 MG/ML INJ ONE (10:51)
[2021-09-06] MEDS ORDERED: ONDANSETRON 4 MG/2 ML VIAL ONE (10:56)
[2021-09-06] MEDS ORDERED: Mastisol Adhesive Liq ONE (10:59)
[2021-09-06] MEDS ORDERED: MORPHINE 4 MG/ML SYR ONE (11:27)
[2021-09-06 11:49] VITALS: O2SAT 100
--- NOTE | 2021-09-06 11:58 | RAD REPORT ---
EXAM DESCRIPTION: RAD - Urethrocystogrphy Retrograde - 09/06/2021 11:47 am CLINICAL HISTORY: STENT PLCMNT COMPARISON: Urography Retrograde dated 08/26/2021 FINDINGS: Total fluoro time: 0.1 minutes
[2021-09-06] MEDS ORDERED: HYDROCODONE/APAP 5/325 MG TAB PO ONE (12:15)
[2021-09-06] MEDS ORDERED: HYDROCODONE/APAP 5/325 MG TAB ONE (12:17)
[2021-09-06 12:57] VITALS: BP 134/78; TEMP 97.6
--- NOTE | 2021-09-07 10:13 | OP ---
Surgeon: LEIGH EVANS Preoperative Diagnosis: Left ureterolithiasis. Postoperative Diagnosis: Left ureterolithiasis. Procedures: 1.Left ureteroscopy with laser lithotripsy and stent exchange. 2.Left stone basketing. Indication For Procedure: Ms. Reese presented to the Emergency Department about a week and a half ago and now with flank pain that was intractable and required stent placement. She presents today for d efinitive management of her stone, having been treated for an E coli UTI sensitive to the third gener ation and first generation cephalosporins. Procedure In Detail: The patient was consented in the preoperative holding area before being transfe rred to the operative suite where general anesthesia was induced. She was given gentamicin 240 mg an d Ancef 2 g IV antimicrobial prophylaxis, and Pneumoboots were provided for DVT prophylaxis. She was placed in the lithotomy position, padded and secured to the table appropriately. Extra care was julio césar en in supporting her lower extremities due to her girth and knee replacement surgery, which made deena ement within the stirrups to require a bit more effort to prevent peroneal nerve compression. In the end, her positioning was excellent with no peroneal nerve compression or posterior calf compression. As a result, her genitalia were prepped with Hibiclens and draped in standard fashion. The case wa s begun using a 22-[place] rigid cystoscope to traverse the urethra and into the bladder with ease. T here was significant gross hematuria within that was evacuated and I refilled her bladder on 2 separa te occasions to irrigate it to be able to visualize the internal contents with ease. I then grasped the left ureteral stent, which was emanating from the ureteral orifice and delivered it to the meatus using an alligator grasper. I then passed a Sensor wire via the stent into the upper pole of the ki dney as observed fluoroscopically. I then performed direct vision semi-rigid ureteroscopy using pres surized normal saline irrigation to traverse the urethra and into the left ureteral orifice alongside the wire until I reached the mid proximal ureter where the stone was observed. The stone did appear partially impacted in that location, and given the extent within her proximal ureter, I utilized a 1 .9-[place] 0 tip Nitinol basket to grasp the stone and dislodge it from its impacted location in order to deliver it further down into the mid ureter where it was more easily targetable. I then employed a 200 nanometer laser fiber at a power setting of 0.8 joules and 8 hertz that was eventually increas ed to 15 hertz to quickly fragment the stone. Additional basketing was then performed to grasp some of the larger fragments, which were at maximum around 200-400 nanometers in size, and these were deli casey separately from the ureter. The ureter was then surveyed again on the way out, and there was n o evidence of ureteral injury. As a result, I then removed the semi-rigid ureteroscope and replaced the 22-[place] rigid cystoscope backloading it over the safety wire into her bladder. I then passed a 6-[place] x 26 cm double-J left ureteral stent over the safety wire and observed a coil within the up per pole of the left kidney. An additional coil was formed cystoscopically within the bladder. Her bladder was then decompressed of fluid and urine, and she was taken out of the lithotomy position aft er the stent, which was left on a tether, was secured to her introitus using Mastisol and Steri-Strip s. She was then awakened from general anesthesia, transferred to a stretcher, and then transferred t o the recovery room in good condition. Complications: None. Discharge Disposition: She will be discharged with a 7 day prescription for Keflex 500 mg p.o. q.i.d . and may follow up in the Urology Clinic for the tethered stent to be extracted somewhere in the nex t 5 days, preferably next Monday, but could possibly be removed on Monday. ROB/JENN Voice ID: [id number] Report ID: [id number]
== END 2021-09-06 12:55 | disposition home or self-care (01) ==
LOC: OR 08:17
PROVIDERS: ATTEND Urology
PROC: 0T778DZ Dilation of Left Ureter with Intraluminal Device, Via Natural or Artificial Opening Endoscopic (ICD-10-PCS; 2021-09-06)
PROC: 0TC78ZZ Extirpation of Matter from Left Ureter, Via Natural or Artificial Opening Endoscopic (ICD-10-PCS; principal; 2021-09-06 10:00)
DX: N20.1 Calculus of ureter (principal); T83.84XA Pain due to genitourinary prosthetic devices, implants and grafts, initial encounter; Z20.822 Contact with and (suspected) exposure to COVID-19
CPT/HCPCS: 36415; 84703; 74450; 51610; 52356; U0003; J2704; J1580; J2250; J3010; J1100; J7120; J2405; J0690; J0290

== ENCOUNTER → 2023-03-03 | Day surgery (SDC) | payer OTHER ==
[2023-03-02 15:30] LABS: Absolute Lymphocytes (CBC) 1.2 K/uL (0.7-4.9); Hematocrit 39.8 % (36.0-45.0); Lymphocytes % 20.8 % (15.3-44.8); MPV 8.5 fL (7.6-11.3); Platelets 218 thou/uL (152-406); RBC Red Blood Cell Count 4.68 M/uL (3.86-4.86)
[2023-03-02 15:31] LABS: Protime INR 1.05
[2023-03-02 16:39] LABS: Potassium 3.9 mEq/L (3.5-5.1)
--- NOTE | 2023-03-02 16:49 | RAD REPORT ---
EXAM DESCRIPTION: RAD - Chest Pa And Lat (2 Views) - 03/02/2023 2:41 pm CLINICAL HISTORY: Pre op pending ureteroscopy. Hypertension COMPARISON: No comparisons TECHNIQUE: PA and lateral views of the chest were obtained. FINDINGS: The lungs are clear. Heart size is normal and central vasculature is within normal limits. No pleural effusion or pneumothorax seen. No acute bony finding noted. IMPRESSION: No acute cardiopulmonary process.
[~2023-03-03] MED LIST: CEFAZOLIN SODIUM 2 GM/VIAL ONE; CODEINE 30MG/APAP 300MG TAB PO PRN; FENTANYL CITR 100 MCG/2 ML ONE; KETOROLAC 30 MG/ML INJ ONE; LIDOCAINE 1% MPF 5 ML VIAL ONE; MIDAZOLAM HCL 2 MG/2 ML INJ ONE; ONDANSETRON 4 MG/2 ML VIAL ONE; PHENAZOPYRIDINE 100MG TAB PO ONE; Ringers Lactate 1,000 ML IV ONE; dexAMETHasone 10 MG/ML VIAL ONE; propofoL 200 MG/20 ML VIAL IV ONE
[2023-03-03 07:41] LABS: Specific Gravity 1.024 (1.005-1.030); Urine Bacteria <20 /HPF (<20); Urine Bilirubin NEGATIVE (Negative); Urine Blood Negative (Negative); Urine Clarity Turbid (Clear); Urine Color Yellow (Yellow); Urine Glucose NEGATIVE (Negative); Urine Mucus Slight /HPF (None Seen); Urine Protein NEGATIVE (Negative); Urine RBC <5 /HPF (None Seen); Urine Urobilinogen Normal (Normal); Urine pH 5.5 (5.0-7.0)
--- NOTE | 2023-03-03 08:55 | P.OP ---
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 No right-sided stones were observed on CT, though she did complain of right- sided flank/back pain. Of note, preoperative urine culture did reveal greater than 100,000 colonies urogenital rebecca, which was likely a contaminant due to her obesity, but she was treated with Keflex 500 mg p.o. 4 times daily x3 days anyway for protection. Procedure note: The patient was consented in the preoperative holding area before being transferred to the operative suite where general anesthesia was induced. She was placed in the lithotomy position, padded and secured to the table appropriately, and her genitalia was prepped with Hibiclens and draped in standard fashion. She was given Ancef 2 g IV antimicrobial prophylaxis and pneumoboots were provided for DVT prophylaxis. The case was begun using a 22 Malaysian rigid cystoscope to traverse the urethra and into the bladder with ease. The bladder was decompressed of fluid and urine and surveyed. There was squamous metaplasia on the trigone and some erythema around the right ureteral orifice, but no papillary mucosal lesions, foreign bodies or stones were noted throughout. The bladder was slightly trabeculated in appearance. I then cannulated the left ureteral orifice using the tip of a 5 Malaysian ureteral access catheter. Left retrograde pyelography: Using a 70: 30 mixture of Omnipaque and saline, contrast was injected via the lumen of the 5 Malaysian ureteral access catheter and did propagate up the distal into the mid and proximal ureter where there was no significant ureteral nephrosis noted, however the contrast into the renal pelvis which did fill and there was moderate pelviectasis with moderate caliectasis indicative of obstruction. As a result, I passed a sensor wire via the 5 Malaysian ureteral access catheter coiling it within the upper pole calyx, and over the sensor wire I remove the 5 Malaysian ureteral access catheter before passing a 6 Malaysian double- J ureteral stent with a coil observed fluoroscopically in the upper pole calyx and 1 cystoscopically formed in the bladder. Of note, the tip of the coil was deliberately redirected to deviate medially because of my clinical experience suggesting decreased stent discomfort with this coil positioning. I then decompressed her bladder of fluid and urine, and she was taken out of the lithotomy position. She was then awakened from general anesthesia, transferred to a stretcher, and then transferred to the recovery room in good condition. Complications: None Discharge disposition: She will need follow-up for definitive surgical management via ureteroscopy with laser lithotripsy and stent exchange in the coming days. She subsequently will require definitive metabolic stone profile assessment.
--- NOTE | 2023-03-03 09:03 | RAD REPORT ---
EXAM DESCRIPTION: RAD - Urethrocystogrphy Retrograde - 03/03/2023 8:45 am CLINICAL HISTORY: ICD N 20.0 FINDINGS: Six fluoroscopic spot images obtained. Fluoroscopy time 0.1 minutes Left ureter was cannulated and contrast administered. Subsequently an ureteral stent was placed. Exam ination was performed by Dr Rodriguez
[2023-03-03 10:33] VITALS: BP 121/77; O2SAT 100
[2023-03-03 10:36] VITALS: TEMP 97
--- NOTE | 2023-03-03 14:25 | EKG ---
Test Date: 2023-03-02 Test Time: 14:59:17 Clock Repair Technician: KELTON MEASUREMENT RESULTS: Intervals: Rate: 81 WV: 178 QRSD: 96 QT: 392 QTc: 455 [place]: P: 42 WV: 178 QRS: 12 T: 35 INTERPRETIVE STATEMENTS: Normal sinus rhythm Normal ECG No previous ECG available for comparison Electronically Signed On 03-03-23 14:22:20 TAKE OUT WAITER by Javed Irene
== END | disposition home or self-care (01) ==
LOC: OR 06:45
PROVIDERS: ATTEND Urology
PROC: 0T778ZZ Dilation of Left Ureter, Via Natural or Artificial Opening Endoscopic (ICD-10-PCS; principal; 2023-03-03 08:00)
DX: N13.2 Hydronephrosis with renal and ureteral calculous obstruction (principal); R10.9 Unspecified abdominal pain
CPT/HCPCS: 93005; 87088; 85025; 81001; 87086; 80048; 36415; 85610; 71046; 74450; 51610; 52332; J2704 ×2; J2001; J2250; J3010; J1100; J2405; J7120

== ENCOUNTER 2023-03-07 07:33 | Day surgery (SDC) | payer OTHER ==
[2023-03-07] MEDS ORDERED: ONDANSETRON 4 MG/2 ML VIAL ONE ×2 (09:06→09:52)
[2023-03-07] MEDS ORDERED: propofoL 200 MG/20 ML VIAL IV ONE (09:51)
[2023-03-07] MEDS ORDERED: MIDAZOLAM HCL 2 MG/2 ML INJ ONE (09:51)
[2023-03-07] MEDS ORDERED: FENTANYL CITR 100 MCG/2 ML ONE (09:51)
[2023-03-07] MEDS ORDERED: LIDOCAINE 1% MPF 5 ML VIAL ONE (09:51)
[2023-03-07] MEDS ORDERED: ROCURONIUM 50 MG/5 ML VIAL IV ONE (09:52)
[2023-03-07] MEDS ORDERED: Ringers Lactate 1,000 ML IV ONE (10:17)
[2023-03-07] MEDS ORDERED: dexAMETHasone 10 MG/ML VIAL ONE (10:33)
[2023-03-07] MEDS ORDERED: SUGAMMADEX SODIUM 200 MG/2 ML VIAL IV ONE (10:49)
[2023-03-07] MEDS ORDERED: Mastisol Adhesive Liq ONE (10:49)
[2023-03-07 10:55] VITALS: O2SAT 100
--- NOTE | 2023-03-07 11:01 | RAD REPORT ---
EXAM DESCRIPTION: RAD - Urethrocystogrphy Retrograde - 03/07/2023 10:49 am CLINICAL HISTORY: STENT EXCHANGE COMPARISON: Urethrocystogrphy Retrograde dated 03/03/2023 FINDINGS: Total fluoro time: 6 seconds
[2023-03-07] MEDS: FENTANYL CITR 100 MCG/2 ML ONE ×2 (11:09→11:14)
[2023-03-07] MEDS ORDERED: CEFAZOLIN SODIUM 2 GM/VIAL ONE (11:25)
--- NOTE | 2023-03-07 11:36 | OP ---
Surgeon: LEIGH EVANS Preoperative Diagnoses: 1.Left proximal ureterolithiasis, approximately 4-5 mm. 2.Status post left ureteral stent placement. 3.Stent discomfort. Postoperative Diagnoses: 1.Left proximal ureterolithiasis, approximately 4-5 mm. 2.Status post left ureteral stent placement. 3.Stent discomfort. Principal Procedures: 1.Cystoscopy with left ureteral stent exchange. 2.Left ureteroscopy with retrograde pyelography. 3.Left ureteroscopic stone basketing. Indication For Procedure: Ms. Reese is a recurrent stone former, who has been treated by me in the [facility] with ureteroscopy and laser lithotripsy and presented recently with left flank pain associated wit h an obstructing proximal ureteral calculus. She underwent stent placement given the severity of her pain and inability to manage it last week, and she presents today for definitive management of the s tone. Procedure In Detail: The patient was consented in the preoperative holding area before being transfe rred to the operative suite, where general anesthesia was induced. She was given Ancef 2 g IV antimi crobial prophylaxis, and pneumo boots were provided for DVT prophylaxis. She was placed in the litho césar position, padded and secured to the table appropriately. Her genitalia were prepped using Hibic lens and draped in a standard fashion. The case was begun using a 22-[place] rigid cystoscope to varsha erse the urethra and into the bladder with ease. The bladder was decompressed of fluid and urine, an d the stent was noted emanating from the left ureteral orifice. The coil of the stent was grasped us ing an Alligator grasper and delivered to the meatus leaving the proximal end of the stent in the mid or proximal ureter. I then passed a Sensor wire via the stent coiling it putatively within the noemi ecting system on the left. I removed the stent leaving the wire in place and then utilized the semi- rigid ureteroscope to perform direct vision entry via the urethra into the left ureteral orifice and navigated up into the proximal ureter, where the ureteral calculus was encountered. As a result, giv en its proximal-most extent that would be manageable by the semi-rigid ureteroscope, I utilized a 1.9 -[place] 0 tipped Nitinol basket to grasp and initially plan to deliver the stone down into the mid di stal ureter where I could laser lithotripsy the stone, but since it was small enough and the ureter w as well dilated enough, I was able to simply remove the stone intact with no difficulty. I sent that stone fragments for chemical analysis and then again passed the ureteroscope back into the distal ur eter and further into the proximal ureter to the level of the UPJ, looking for any additional calculi , and when none were noted, I then injected contrast via the ureteroscope to confirm absence of any l eak or ureteral injury and to delineate the collecting system appropriately where the coil of the wir e was observed coiling within the renal pelvis. I then removed the ureteroscope and backloaded the c ystoscope over the safety wire before passing a 6-[place] x 26 cm double-J ureteral stent with a coil observed fluoroscopically in the upper pole of the kidney and one cystoscopically formed in her bladd er. The stent was left on its tether, and after decompressing her bladder of fluid and urine, we the n secured the tether of the stent to her introitus using Mastisol and Steri-Strips. She was then julio césar en out of the lithotomy position, awakened from general anesthesia, transferred to a stretcher, and t hen transferred to the recovery room in good condition. Complications: None. Discharge Disposition: I will discharge her with a prescription for Bactrim DS once daily for the ne xt 7 days until the tethered ureteral stent can be removed in the office next Monday or Monday with nursing. She should be provided with Litholink x2 metabolic profile analysis, which I would like for her to do no sooner than 1 month after the stent is removed. She should then be scheduled to follow up with me about 2-3 months from the stent removal to allow time for the Litholink analysis to return. ROB/JENN Voice ID: [id number] Report ID: [id number]
[2023-03-07] MEDS ORDERED: CODEINE 30MG/APAP 300MG TAB PO PRN (11:48)
[2023-03-07] MEDS ORDERED: PHENAZOPYRIDINE 100MG TAB PO ONE (11:48)
[2023-03-07 11:52] VITALS: BP 115/58; TEMP 96.7
[2023-03-07] MEDS ORDERED: CODEINE 30MG/APAP 300MG TAB ONE (11:56)
== END 2023-03-07 12:12 | disposition home or self-care (01) ==
LOC: OR 07:33
PROVIDERS: ATTEND Urology
PROC: 0TC78ZZ Extirpation of Matter from Left Ureter, Via Natural or Artificial Opening Endoscopic (ICD-10-PCS; 2023-03-07)
PROC: 0T778DZ Dilation of Left Ureter with Intraluminal Device, Via Natural or Artificial Opening Endoscopic (ICD-10-PCS; principal; 2023-03-07 09:45)
DX: N20.1 Calculus of ureter (principal); T83.84XA Pain due to genitourinary prosthetic devices, implants and grafts, initial encounter
CPT/HCPCS: 52332; 52352; 88300; 82360; 74450; 51610; J2704; J2001; J2250; J3010 ×2; J1100; J2405 ×2; J7120